=== PATIENT | female | born 1950 | race Caucasian/White ===

== ENCOUNTER → 2019-05-19 14:14 | Outpatient (CLI) | payer MEDICARE, OTHER, SELFPAY | PROVIDERS: PCP Student in an Organized Health Care Education/Training Program; Visit Provider Student in an Organized Health Care Education/Training Program | DX: M85.852 Other specified disorders of bone density and structure, left thigh (principal); Z78.0 Asymptomatic menopausal state; E11.9 Type 2 diabetes mellitus without complications; Z87.891 Personal history of nicotine dependence | CPT/HCPCS: 77080 ==

== ENCOUNTER → 2019-12-19 08:23 | Outpatient (CLI) | payer MEDICARE, OTHER, SELFPAY ==
[2019-12-19 09:28] LABS: Add Manual Diff / Slide Review NO; Basophils Absolute Auto 100 /uL (0-100); Basophils Percent Auto 0.8 % (0-2); Eosinophils Absolute Auto 300 /uL (0-450); Eosinophils Percent Auto 4.4 % (2-4); Hematocrit 39.9 % (36-46); Hemoglobin 13.6 g/dL (12.0-16.0); Lymphocytes Absolute Auto 3400 /uL (1100-4500); Lymphocytes Percent Auto 45.5 % (25-40); Mean Corpuscular Hemoglobin 29.9 PG (26-34); Monocytes Absolute Auto 600 /uL (0-900); Monocytes Percent Auto 7.6 % (3-14); Neutrophils Absolute Auto 3200 /uL (1500-7000); Neutrophils Percent Auto 41.7 % (50-75); Platelet Count 286 X10^3/uL (150-400); Red Blood Cell Count 4.53 X10^6/uL (4.0-5.2); Red Cell Distribution Width 12.7 % (11.6-14.8); White Blood Cell Count 7.6 X10^3/uL (4.5-11.0)
[2019-12-19 10:33] LABS: Creatinine Urine Random 120.4 mg/dL
[2019-12-19 10:37] LABS: Microalbumi Creatinin Ratio Ur 12.4 ug/mg CR (<30); Microalbumin Urine Random 1.5 mg/dL (0-1.6)
[2019-12-19 11:34] LABS: Hemoglobin A1C% w Est Avg Glu 8.1 % (4.0-6.0)
[2019-12-19 12:31] LABS: Alanine Aminotransferase 46 IU/L (<35); Albumin 4.8 g/dL (3.5-5.0); Albumin Globulin Ratio 1.5 (1.0-2.8); Alkaline Phosphatase 44 U/L (38-126); Aspartate Aminotransferase 39 IU/L (14-36); BUN Creatinine Ratio 26.7 (6-22); Bilirubin Total 0.4 mg/dL (0.2-1.3); Blood Urea Nitrogen 20 mg/dL (7-17); Carbon Dioxide 24 mmol/L (22-32); Chloride 101 mmol/L (98-107); Cholesterol 254 mg/dL (140-199); Estimated Glomerular Filt Rate > 60.0 mL/min (>60); Globulin 3.2 g/dL (1.7-4.1); Glucose 212 mg/dL (80-110); HDL Cholesterol 34 mg/dL (40-60); HEMOLYSIS < 15 (0-50); LDL Cholesterol Calculated 170 mg/dL (<100); Sodium 136 mmol/L (137-145); Triglycerides 252 mg/dL (35-150)
[2019-12-20 08:37] LABS: SARS CoV19 IgG Negative (Negative)
== END ==
PROVIDERS: PCP Student in an Organized Health Care Education/Training Program; Referring Provider Student in an Organized Health Care Education/Training Program; Visit Provider Student in an Organized Health Care Education/Training Program
DX: E11.9 Type 2 diabetes mellitus without complications (principal); I10 Essential (primary) hypertension
CPT/HCPCS: 36415; 80053; 80061; 82043; 82570; 83036; 85025; 86769

== ENCOUNTER → 2023-12-22 09:03 | Outpatient (CLI) | payer MEDICARE, OTHER, SELFPAY ==
[2023-12-22 10:21] LABS: Add Manual Diff / Slide Review NO; Basophils Absolute Auto 100 /uL (0-100); Basophils Percent Auto 0.7 % (0-2); Eosinophils Absolute Auto 200 /uL (0-450); Eosinophils Percent Auto 3.3 % (2-4); Hemoglobin 12.8 g/dL (12.0-16.0); Lymphocytes Absolute Auto 3100 /uL (1100-4500); Mean Corpuscular HGB Conc 33.7 % (30-36); Mean Corpuscular Hemoglobin 29.5 PG (26-34); Mean Corpuscular Volume 87.3 fL (80-100); Monocytes Absolute Auto 500 /uL (0-900); Monocytes Percent Auto 6.6 % (3-14); Neutrophils Absolute Auto 3500 /uL (1500-7000); Neutrophils Percent Auto 47.4 % (50-75); Platelet Count 306 X10^3/uL (150-400); Red Blood Cell Count 4.35 X10^6/uL (4.0-5.2); Red Cell Distribution Width 12.8 % (11.6-14.8); White Blood Cell Count 7.3 X10^3/uL (4.5-11.0)
[2023-12-22 10:39] LABS: Hemoglobin A1C% w Est Avg Glu 8.2 % (4.0-6.0)
[2023-12-22 10:57] LABS: Creatinine Urine Random 39.01 mg/dL
[2023-12-22 10:58] LABS: Alanine Aminotransferase 69 IU/L (<35); Albumin 4.7 g/dL (3.5-5.0); Albumin Globulin Ratio 1.7 (1.0-2.8); Alkaline Phosphatase 51 U/L (38-126); Aspartate Aminotransferase 48 IU/L (14-36); BUN Creatinine Ratio 23.4 (6-22); Bilirubin Total 0.6 mg/dL (0.2-1.3); Blood Urea Nitrogen 26 mg/dL (7-17); Calcium 9.8 mg/dL (8.4-10.2); Carbon Dioxide 24 mmol/L (22-32); Chloride 101 mmol/L (98-107); Cholesterol 275 mg/dL (140-199); Estimated Glomerular Filt Rate 52 mL/min (>60); Globulin 2.7 g/dL (1.7-4.1); Glucose 190 mg/dL (80-110); HDL Cholesterol 42 mg/dL (40-60); HEMOLYSIS < 15 (0-50); LDL Cholesterol Calculated 163 mg/dL (<100); Potassium 5.2 mmol/L (3.4-5.1); Sodium 134 mmol/L (137-145); Total Protein 7.4 g/dL (6.3-8.2); Triglycerides 348 mg/dL (35-150)
[2023-12-22 11:05] LABS: Microalbumin Urine Random < 0.6 mg/dL (0-1.6)
== END ==
PROVIDERS: PCP Student in an Organized Health Care Education/Training Program; Referring Provider Student in an Organized Health Care Education/Training Program; Visit Provider Student in an Organized Health Care Education/Training Program
DX: Z13.1 Encounter for screening for diabetes mellitus (principal); E11.9 Type 2 diabetes mellitus without complications
CPT/HCPCS: 36415; 80053; 80061; 82043; 82570; 83036; 85025

== ENCOUNTER → 2024-03-28 12:39 | Outpatient (CLI) | payer MEDICARE, OTHER, SELFPAY ==
--- NOTE | 2024-03-28 12:40 | DI.RAD.S_ITS ---
PROCEDURE: XR DEXA AXIAL SKELETON INDICATIONS: Bone Density Screening COMPARISON: [facility], [place], XR DEXA AXIAL SKELETON, 05/19/2019, 14:43. FINDINGS: Lumbar Spine: Bone mineral density 0.97 g/cm2, T score -0.7, previously -0.3. Left Hip: Bone mineral density 0.84 g/cm2, T score -0.8, previously -0.8. Left Femoral Neck: Bone mineral density 0.7 g/cm2, T score -1.4. Previously -1.3 Right Hip: Bone mineral density 0.84 g/cm2, T score -0.8, previously -0.5. Right Femoral Neck: Bone mineral density 0.82 g/cm2, T score -0.3 Previously 0 Fracture Risk Calculation (when applicable): 10-year fracture risk of a major osteoporotic fracture 10% and of a hip fracture 1.7%. (T score greater or equal to -1.0 to: NORMAL) (T score from -1.1 to -2.4: OSTEOPENIA) (T score less than or equal to -2.5: OSTEOPOROSIS) IMPRESSION: Osteopenia with fracture risks as above. Follow-up guidelines as follows: Osteoporosis: Consider a repeat DEXA and Vertebral Fracture Assessment (VFA) exam in 2 years or sooner if medically necessary, to reassess this patient's status. Osteopenia: Consider a repeat DEXA in 2-3 years to reassess this patient's status, or if there is a new clinical indication. Normal: Consider a repeat DEXA in 5 years or sooner, or if there is a new clinical indication. All treatment decisions require clinical judgment and consideration of individual patient factors, including patient preferences, comorbidities, previous drug use, risk factors not captured in the FRAX model (e.g., frailty, falls, vitamin D deficiency, increased bone turnover, interval significant decline in bone density ) and possible under- or over-estimation of fracture risk by FRAX. In addition, the NOF Guide recommends that FDA-approved medical therapies be considered in postmenopausal women and men age >= 50 years with a: * Hip or vertebral (clinical or morphometric) fracture * T-score of <=-2.5 at the spine or hip * Ten-year fracture probability by FRAX of >= 3% for hip fracture or >=20% for major osteoporotic fracture. People with diagnosed cases of osteoporosis or at high risk for fracture should have regular bone mineral density tests. For patients eligible for Medicare, routine testing is allowed once every 2 years. The testing frequency can be increased to one year for patients who have rapidly progressing disease, those who are receiving or discontinuing medical therapy to restore bone mass, or have additional risk factors. Dictated by: Dorian Gauthier M.D. on 03/29/2024 at 11:29 Approved by: Dorian Gauthier M.D. on 03/29/2024 at 11:31
== END ==
PROVIDERS: PCP Student in an Organized Health Care Education/Training Program; Referring Provider Student in an Organized Health Care Education/Training Program; Visit Provider Student in an Organized Health Care Education/Training Program
DX: M85.88 Other specified disorders of bone density and structure, other site (principal); Z91.89 Other specified personal risk factors, not elsewhere classified
CPT/HCPCS: 77080

== ENCOUNTER → 2024-04-03 09:56 | Outpatient (CLI) | payer MEDICARE, OTHER, SELFPAY ==
[2024-04-03 10:57] LABS: Hemoglobin A1C% w Est Avg Glu 7.7 % (4.0-6.0)
[2024-04-03 11:37] LABS: Alanine Aminotransferase 72 IU/L (<35); Albumin 4.7 g/dL (3.5-5.0); Albumin Globulin Ratio 1.8 (1.0-2.8); Alkaline Phosphatase 49 U/L (38-126); Aspartate Aminotransferase 49 IU/L (14-36); Bilirubin Total 0.7 mg/dL (0.2-1.3); Blood Urea Nitrogen 19 mg/dL (7-17); Calcium 9.9 mg/dL (8.4-10.2); Carbon Dioxide 21 mmol/L (22-32); Chloride 96 mmol/L (98-107); Estimated Glomerular Filt Rate 52 mL/min (>60); Globulin 2.6 g/dL (1.7-4.1); Glucose 197 mg/dL (80-110); HEMOLYSIS < 15 (0-50); Potassium 5.1 mmol/L (3.4-5.1); Sodium 129 mmol/L (137-145); Total Protein 7.3 g/dL (6.3-8.2)
== END ==
PROVIDERS: PCP Student in an Organized Health Care Education/Training Program; Referring Provider Student in an Organized Health Care Education/Training Program; Visit Provider Student in an Organized Health Care Education/Training Program
DX: I12.9 Hypertensive chronic kidney disease with stage 1 through stage 4 chronic kidney disease, or unspecified chronic kidney disease (principal); E11.22 Type 2 diabetes mellitus with diabetic chronic kidney disease; N18.31 Chronic kidney disease, stage 3a
CPT/HCPCS: 36415; 80053; 83036

== ENCOUNTER → 2024-08-02 10:33 | Outpatient (CLI) | payer MEDICARE, OTHER, SELFPAY ==
[2024-08-02 11:16] LABS: Add Manual Diff / Slide Review NO; Basophils Absolute Auto 100 /uL (0-100); Basophils Percent Auto 0.8 % (0-2); Eosinophils Absolute Auto 300 /uL (0-450); Eosinophils Percent Auto 3.8 % (2-4); Hematocrit 38.7 % (36-46); Lymphocytes Absolute Auto 3400 /uL (1100-4500); Lymphocytes Percent Auto 41.4 % (25-40); Mean Corpuscular HGB Conc 33.7 % (30-36); Mean Corpuscular Hemoglobin 29.5 PG (26-34); Mean Corpuscular Volume 87.5 fL (80-100); Monocytes Absolute Auto 500 /uL (0-900); Monocytes Percent Auto 6.2 % (3-14); Neutrophils Absolute Auto 3900 /uL (1500-7000); Neutrophils Percent Auto 47.8 % (50-75); Platelet Count 306 X10^3/uL (150-400); Red Blood Cell Count 4.42 X10^6/uL (4.0-5.2); Red Cell Distribution Width 12.8 % (11.6-14.8); White Blood Cell Count 8.2 X10^3/uL (4.5-11.0)
[2024-08-02 11:27] LABS: Hemoglobin A1C% w Est Avg Glu 9.3 % (4.0-6.0)
[2024-08-02 11:57] LABS: Alanine Aminotransferase 79 IU/L (<35); Albumin 4.6 g/dL (3.5-5.0); Albumin Globulin Ratio 1.6 (1.0-2.8); Alkaline Phosphatase 45 U/L (38-126); Aspartate Aminotransferase 58 IU/L (14-36); BUN Creatinine Ratio 18.3 (6-22); Bilirubin Total 0.5 mg/dL (0.2-1.3); Blood Urea Nitrogen 21 mg/dL (7-17); Carbon Dioxide 24 mmol/L (22-32); Chloride 98 mmol/L (98-107); Estimated Glomerular Filt Rate 50 mL/min (>60); Globulin 2.8 g/dL (1.7-4.1); Glucose 224 mg/dL (80-110); HEMOLYSIS < 15 (0-50); Iron 90 ug/dL (37-170); Sodium 131 mmol/L (137-145); Total Protein 7.4 g/dL (6.3-8.2)
[2024-08-02 12:10] LABS: Percent Iron Saturation 30 % (15-50); Total Iron Binding Capacity 300 ug/dL (265-497); Transferrin 284 mg/dL (206-381)
[2024-08-02 12:33] LABS: Ferritin 76 ng/mL (11-264)
== END ==
LOC: LAB 10:36
PROVIDERS: PCP Student in an Organized Health Care Education/Training Program; Referring Provider Student in an Organized Health Care Education/Training Program; Visit Provider Student in an Organized Health Care Education/Training Program
DX: D64.9 Anemia, unspecified (principal); E11.9 Type 2 diabetes mellitus without complications; R74.8 Abnormal levels of other serum enzymes
CPT/HCPCS: 36415; 80053; 82728; 83036; 83540; 83550; 85025

== ENCOUNTER → 2024-11-27 08:11 | Outpatient (CLI) | payer MEDICARE, OTHER, SELFPAY ==
--- NOTE | 2024-11-27 08:12 | DI.US.S_ITS ---
PROCEDURE: US ABDOMEN LIMITED INDICATIONS: Liver US for Elevated LFT's TECHNIQUE: Real-time scanning was performed of the abdominal and retroperitoneal organs, with image documentation. COMPARISON: None. FINDINGS: Liver: The liver is diffusely decreased in attenuation without focal mass lesion. Gallbladder: Sonolucent without cholelithiasis. No gallbladder wall thickening. No pericholecystic fluid or Addison's sign. Common Bile Duct: 6.0 mm. Pancreas: Unremarkable as visualized IMPRESSION: Hepatic fatty infiltration without mass lesion Approved by: Kishore Abbott M.D. on 11/27/2024 at 18:41
== END ==
LOC: US 08:12
PROVIDERS: PCP Student in an Organized Health Care Education/Training Program; Referring Provider Student in an Organized Health Care Education/Training Program; Visit Provider Student in an Organized Health Care Education/Training Program
DX: K76.0 Fatty (change of) liver, not elsewhere classified (principal); R74.8 Abnormal levels of other serum enzymes
CPT/HCPCS: 76705

== ENCOUNTER → 2024-12-04 08:47 | Outpatient (CLI) | payer MEDICARE, OTHER, SELFPAY ==
[2024-12-04 10:35] LABS: Alanine Aminotransferase 41 IU/L (<35); Albumin 4.8 g/dL (3.5-5.0); Albumin Globulin Ratio 1.8 (1.0-2.8); Alkaline Phosphatase 47 U/L (38-126); Aspartate Aminotransferase 32 IU/L (14-36); BUN Creatinine Ratio 28.9 (6-22); Bilirubin Total 0.5 mg/dL (0.2-1.3); Blood Urea Nitrogen 37 mg/dL (7-17); Calcium 9.9 mg/dL (8.4-10.2); Carbon Dioxide 20 mmol/L (22-32); Chloride 98 mmol/L (98-107); Cholesterol 286 mg/dL (140-199); Estimated Glomerular Filt Rate 44 mL/min (>60); Globulin 2.7 g/dL (1.7-4.1); Glucose 184 mg/dL (70-99); HDL Cholesterol 37 mg/dL (40-60); HEMOLYSIS < 15 (0-50); LDL Cholesterol Calculated 193 mg/dL (<100); Sodium 130 mmol/L (137-145); Total Protein 7.5 g/dL (6.3-8.2); Triglycerides 280 mg/dL (35-150)
[2024-12-04 10:36] LABS: Potassium 5.8 mmol/L (3.4-5.1)
[2024-12-04 11:08] LABS: TSH w/ Reflex to FT4 4.95 uIU/mL (0.47-4.68)
[2024-12-04 12:01] LABS: Free T4, Direct Thyroxine 1.09 ng/dL (0.78-2.19)
== END ==
PROVIDERS: PCP Student in an Organized Health Care Education/Training Program; Referring Provider Student in an Organized Health Care Education/Training Program; Visit Provider Student in an Organized Health Care Education/Training Program
DX: I12.9 Hypertensive chronic kidney disease with stage 1 through stage 4 chronic kidney disease, or unspecified chronic kidney disease (principal); N18.31 Chronic kidney disease, stage 3a; R74.8 Abnormal levels of other serum enzymes; E11.22 Type 2 diabetes mellitus with diabetic chronic kidney disease; Z79.899 Other long term (current) drug therapy
CPT/HCPCS: 36415; 80053; 80061; 83036; 84439; 84443

== ENCOUNTER 2024-12-04 18:41 | Emergency (ER) | payer MEDICARE, OTHER, SELFPAY ==
[2024-12-04] VITALS (8 sets, daily range): BP systolic 105–154; BP diastolic 55–70; PULSE 92–100; RESP 18–28; TEMP 36.6; O2SAT 95–98
--- NOTE | 2024-12-04 18:55 | EKG_ITS ---
[address] [address] [address] [address] Test Date: 2024-12-04 Pat Name: Ginna Rivers Department: Room: Gender: Female [employer]: ALEXANDR : 1950 Requested By: Order Number: [id number] Reading MD: Inocente Stewart MD Measurements Intervals [place] Rate: 96 P: 37 IN: 142 QRS: -12 QRSD: 68 T: 14 QT: 322 QTc: 406 Interpretive Statements Normal sinus rhythm Low voltage QRS Inferior infarct , age undetermined Electronically Signed On 12-05-2024 7:43:17 PDT by Inocente Stewart MD
[2024-12-04 19:44] LABS: Add Manual Diff / Slide Review NO; Basophils Absolute Auto 100 /uL (0-100); Eosinophils Absolute Auto 200 /uL (0-450); Eosinophils Percent Auto 2.2 % (2-4); Hematocrit 36.6 % (36-46); Hemoglobin 12.8 g/dL (12.0-16.0); Lymphocytes Absolute Auto 3900 /uL (1100-4500); Lymphocytes Percent Auto 38.9 % (25-40); Mean Corpuscular HGB Conc 34.8 % (30-36); Mean Corpuscular Hemoglobin 30.5 PG (26-34); Mean Corpuscular Volume 87.5 fL (80-100); Monocytes Absolute Auto 800 /uL (0-900); Monocytes Percent Auto 7.8 % (3-14); Neutrophils Absolute Auto 5000 /uL (1500-7000); Neutrophils Percent Auto 50.1 % (50-75); Platelet Count 278 X10^3/uL (150-400); Red Blood Cell Count 4.18 X10^6/uL (4.0-5.2); Red Cell Distribution Width 12.9 % (11.6-14.8); White Blood Cell Count 9.9 X10^3/uL (4.5-11.0)
[2024-12-04 19:53] LABS: INR 0.9 (0.9-1.3); Prothrombin Time 10.7 SECONDS (9.4-12.5)
[2024-12-04 19:54] LABS: Lactate (Lactic Acid) 2.6 mmol/L (0.7-2.1)
[2024-12-04 19:56] LABS: Alanine Aminotransferase 42 IU/L (<35); Albumin 4.8 g/dL (3.5-5.0); Albumin Globulin Ratio 1.7 (1.0-2.8); Alkaline Phosphatase 42 U/L (38-126); Aspartate Aminotransferase 33 IU/L (14-36); BUN Creatinine Ratio 26.3 (6-22); Bilirubin Total 0.4 mg/dL (0.2-1.3); Blood Urea Nitrogen 41 mg/dL (7-17); Carbon Dioxide 20 mmol/L (22-32); Chloride 100 mmol/L (98-107); Creatine Kinase 32 U/L (30-135); Estimated Glomerular Filt Rate 35 mL/min (>60); Globulin 2.9 g/dL (1.7-4.1); Glucose 172 mg/dL (70-99); HEMOLYSIS 25 (0-50); Lipase 279 U/L (23-300); Magnesium 1.6 mg/dL (1.6-2.3); PTT Partial Thromboplastin Tim 27 SECONDS (25.1-36.5); Sodium 131 mmol/L (137-145); Total Protein 7.7 g/dL (6.3-8.2)
[2024-12-04 19:57] LABS: Potassium 5.6 mmol/L (3.4-5.1)
[2024-12-04 20:07] LABS: NT-proBNP (BNP-Adult 18+) 34 pg/mL (<125); Troponin I < 0.012 ng/mL (0.01-0.034)
--- NOTE | 2024-12-04 20:20 | ED.RECABL ---
HPI - Recheck/Abnormal Lab/Rx General Chief Complaint: Recheck/Abnormal Lab/Rx Stated Complaint: High potassium, Doctor said to come to ER Time Seen by Provider: 12/04/24 20:12 Source: patient Mode of arrival: Ambulatory History of Present Illness HPI narrative: 74-year-old female with history of diabetes, chronic kidney disease, was called to have further evaluation treatment of elevated potassium level from outpatient blood draw. Patient had routine outpatient blood draw, was told her potassium was 5.8 into high, was told to come in here for further evaluation, possible treatment if confirmed to be high. She has not have any current symptoms. She did have watery stools nonbloody and some vomiting last week, it seemed to get better. She can not remember having any specific potassium supplementation at thereafter. No other changes in medications. She tells he serum metformin doses for her diabetes. Related Data Home Medications Medication Instructions Recorded Confirmed aspirin 81 mg tablet,delayed 81 mg PO DAILY 09/10/23 12/05/24 release (Adult Low Dose Aspirin) pstorla-qgckxmwunupyv-jezrbfbe 250 1 tab PO Q4-6H PRN Pain 09/10/23 12/05/24 mg-250 mg-65 mg tablet (Excedrin Extra Strength) cholecalciferol (vitamin D3) 1,250 1,250 mcg PO QMONTH 09/10/23 12/05/24 mcg (50,000 unit) capsule cyanocobalamin (vitamin B-12) 500 250 mcg PO DAILY 09/10/23 12/05/24 mcg tablet (B-12 DOTS) lutein 20 mg tablet 20 mg PO DAILY 09/10/23 12/05/24 multivitamin 1 tab PO DAILY 09/10/23 12/05/24 calcium 315 mg (as 1 tab PO osteopenia 08/07/24 08/07/24 citrate)-vitamin D3 5 mcg (200 unit) tablet (Calcium Citrate + D) Previous Rx's Medication Instructions Recorded metformin 1,000 mg tablet 1,000 mg PO BID #120 tabs 12/28/23 lisinopril 10 1 tab PO DAILY #90 tabs 08/30/24 mg-hydrochlorothiazide 12.5 mg tablet blood sugar diagnostic (True #100 ea 09/14/24 Metrix Glucose Test Strip) diazepam 5 mg tablet 5 mg PO BID PRN anxiety #20 tabs 10/05/24 Allergies Allergy/AdvReac Type Severity Reaction Status Date / Time NSAIDS (Non-Steroidal Allergy Severe Anxiety Verified 12/04/24 19:04 Anti-Inflamma shellfish derived Allergy Severe Abdominal Verified 12/04/24 19:04 Pain Dfefdty-NVK-GvB Reductase Allergy Severe Anxiety Verified 12/04/24 19:04 Inhibitor amoxicillin Allergy Intermediate Rash Verified 12/05/24 05:16 progesterone Allergy Intermediate Verified 12/04/24 19:04 food Allergy Severe Abdominal Uncoded 12/05/24 05:16 Pain titanium oxide Allergy Severe Rash Uncoded 12/04/24 19:04 Exam Narrative Exam Narrative: GENERAL: Well-developed patient, in mild distress. HEAD: Atraumatic. Normocephalic. EYES: Pupils equal round and reactive. Extraocular motions intact. No scleral icterus. No injection or drainage. ENT: Nose without bleeding, purulent drainage. Throat without erythema, tonsillar hypertrophy or exudate. Airway patent. NECK: Trachea midline. Non tender CARDIOVASCULAR: Regular rate and rhythm without murmurs, gallops, or rubs. RESPIRATORY: Clear to auscultation. Breath sounds equal bilaterally. No wheezes, rales, or rhonchi. GASTROINTESTINAL: Abdomen soft, non-tender, nondistended. EXTREMITIES: No edema or joint tenderness. BACK: Nontender without deformity or crepitance. No flank tenderness. NEURO: AOx3. Motor functions grossly nonfocal SKIN: No rash or erythema of visible areas Initial Vital Signs Initial Vital Signs: Vital Signs Temperature 98 F 12/04/24 19:02 Pulse Rate 97 H 12/04/24 19:02 Respiratory Rate 18 12/04/24 19:02 Blood Pressure 154/70 H 12/04/24 19:02 Pulse Oximetry 98 12/04/24 19:02 Oxygen Delivery Method Room Air 12/04/24 19:02 Course Orders Ordered: ED Orders 12/04/24 22:47 BMP [Basic Metabolic Panel] Stat 12/05/24 02:35 Potassium Stat 12/05/24 06:12 Potassium Stat Discontinued Medications Albuterol (Albuterol 2.5 Mg/3 Ml Neb (Adult)) 2.5 mg INH NOW ONE Stop: 12/05/24 03:04 Last Admin: 12/05/24 03:19 Dose: 2.5 mg Documented By: Roshni Dextrose (Dextrose 50 % In Water 25 Gm/50 Ml Syringe) 25 gm IV NOW ONE Stop: 12/04/24 20:13 Last Admin: 12/04/24 21:06 Dose: Not Given Documented By: KEVIN Dextrose (Dextrose 50 % In Water 25 Gm/50 Ml Syringe) 25 gm IV NOW ONE Stop: 12/04/24 23:21 Last Admin: 12/04/24 23:38 Dose: 25 gm Documented By: HERVE Dextrose (Dextrose 50 % In Water 25 Gm/50 Ml Syringe) 25 gm IV PRN PRN PRN Reason: Hypoglycemia Furosemide (Furosemide 40 Mg/4 Ml Vial) 40 mg IV NOW ONE Stop: 12/04/24 20:13 Last Admin: 12/04/24 21:06 Dose: Not Given Documented By: KEVIN Furosemide (Furosemide 40 Mg/4 Ml Vial) 40 mg IV NOW ONE Stop: 12/04/24 23:21 Last Admin: 12/04/24 23:37 Dose: 40 mg Documented By: HERVE Furosemide (Furosemide 40 Mg/4 Ml Vial) 40 mg IV NOW ONE Stop: 12/05/24 03:04 Last Admin: 12/05/24 03:21 Dose: 40 mg Documented By: HERVE Calcium Gluconate 4.65 meq/ (Sodium Chloride) 60 mls @ 180 mls/hr IV NOW ONE Stop: 12/04/24 20:31 Last Admin: 12/04/24 21:06 Dose: Not Given Documented By: KEVIN Sodium Chloride (Normal Saline 0.9%) 1,000 mls @ 1,000 mls/hr IV BOLUS ONE Stop: 12/04/24 21:13 Last Infusion: 12/04/24 21:27 Dose: Infused Documented By: Admin: 12/04/24 20:38 Dose: 1,000 mls/hr Documented By: KEVIN Calcium Gluconate 4.65 meq/ (Sodium Chloride) 60 mls @ 180 mls/hr IV NOW ONE Stop: 12/04/24 23:41 Last Infusion: 12/05/24 00:00 Dose: Infused Documented By: Admin: 12/04/24 23:39 Dose: 180 mls/hr Documented By: HERVE Sodium Chloride (Normal Saline 0.9%) 1,000 mls @ 1,000 mls/hr IV BOLUS ONE Stop: 12/05/24 04:02 Last Infusion: 12/05/24 05:23 Dose: Infused Documented By: Admin: 12/05/24 03:23 Dose: 1,000 mls/hr Documented By: HERVE Sodium Bicarbonate 100 meq/ (Sterile Water) 500 mls @ 200 mls/hr IV CONT ANIYAH Last Admin: 12/05/24 04:28 Dose: Not Given Documented By: Insulin Human Regular (Insulin Regular 100 Unit/Ml 3 Ml Vial) 5 unit IV NOW ONE Stop: 12/04/24 20:13 Last Admin: 12/04/24 21:06 Dose: Not Given Documented By: KEVIN Insulin Human Regular (Insulin Regular 100 Unit/Ml 3 Ml Vial) 5 unit IV NOW ONE Stop: 12/04/24 23:21 Last Admin: 12/05/24 00:02 Dose: 5 unit Documented By: HERVE Co-signed By: AT Insulin Human Regular (Insulin Regular 100 Unit/Ml 3 Ml Vial) 5 unit IV NOW ONE Stop: 12/05/24 03:04 Last Admin: 12/05/24 03:43 Dose: 5 unit Documented By: HERVE Co-signed By: Sodium Bicarbonate (Sodium Bicarb 8.4% Syringe) 50 meq IV NOW ONE Stop: 12/05/24 04:29 Last Admin: 12/05/24 04:34 Dose: 50 meq Documented By: HERVE Sodium Zirconium Cyclosilicate (Sodium Zirconium Cyclosilicate 10 Gm Powd.Pack) 10 gm PO NOW ONE Stop: 12/04/24 20:13 Last Admin: 12/04/24 20:44 Dose: 10 gm Documented By: KEVIN Sodium Zirconium Cyclosilicate (Sodium Zirconium Cyclosilicate 10 Gm Powd.Pack) 10 gm PO NOW ONE Stop: 12/04/24 23:21 Last Admin: 12/04/24 23:40 Dose: Not Given Documented By: HERVE Sodium Zirconium Cyclosilicate (Sodium Zirconium Cyclosilicate 10 Gm Powd.Pack) 10 gm PO NOW ONE Stop: 12/05/24 03:04 Last Admin: 12/05/24 03:05 Dose: 10 gm Documented By: HERVE Vital Signs Vital signs: Vital Signs - 8 hr 12/04/24 23:00 12/04/24 23:00 12/04/24 23:30 Pulse Rate 92 H 93 H Respiratory Rate 20 28 H Blood Pressure 105/55 L Pulse Oximetry 96 97 Oxygen Delivery Method 12/04/24 23:31 12/04/24 23:31 12/05/24 00:00 Pulse Rate 94 H 101 H Respiratory Rate 27 H 30 H Blood Pressure 125/58 L Pulse Oximetry 97 97 Oxygen Delivery Method 12/05/24 00:00 12/05/24 00:20 12/05/24 00:20 Pulse Rate 100 H Respiratory Rate 27 H Blood Pressure 155/77 H 145/72 H Pulse Oximetry 96 Oxygen Delivery Method 12/05/24 00:30 12/05/24 00:30 12/05/24 01:00 Pulse Rate 98 H 100 H Respiratory Rate 26 H 20 Blood Pressure 152/62 H Pulse Oximetry 97 96 Oxygen Delivery Method 12/05/24 01:00 12/05/24 01:30 12/05/24 02:00 Pulse Rate 90 86 Respiratory Rate 19 20 Blood Pressure 125/60 Pulse Oximetry 99 98 Oxygen Delivery Method Room Air 12/05/24 02:18 12/05/24 02:18 12/05/24 02:30 Pulse Rate 86 96 H Respiratory Rate 18 13 Blood Pressure 109/59 L Pulse Oximetry 98 98 Oxygen Delivery Method 12/05/24 02:30 12/05/24 03:00 12/05/24 03:00 Pulse Rate 85 Respiratory Rate 24 Blood Pressure 170/73 H 131/66 Pulse Oximetry 98 Oxygen Delivery Method 12/05/24 03:24 12/05/24 03:30 12/05/24 03:30 Pulse Rate 86 90 Respiratory Rate 16 25 H Blood Pressure 144/69 H Pulse Oximetry 96 95 Oxygen Delivery Method Room Air 12/05/24 04:00 12/05/24 04:30 12/05/24 05:00 Pulse Rate 100 H 98 H 94 H Respiratory Rate 25 H 23 15 Blood Pressure Pulse Oximetry 97 96 95 Oxygen Delivery Method 12/05/24 05:31 12/05/24 06:00 12/05/24 06:03 Pulse Rate 103 H 98 H 93 H Respiratory Rate 24 25 H 20 Blood Pressure Pulse Oximetry 96 97 96 Oxygen Delivery Method 12/05/24 06:03 12/05/24 06:30 12/05/24 06:30 Pulse Rate 94 H Respiratory Rate 20 Blood Pressure 119/57 L 103/57 L Pulse Oximetry 95 Oxygen Delivery Method MDM - Recheck/Abnormal Lab/Rx Lab Data Attestation: I reviewed the patient's lab results. Lab results narrative: White blood cell count 9900, hemoglobin 12.8, platelets adequate. Glucose 172. BUN 41 with creatinine 1.56. Serum CO2 20. Potassium today here in the emergency department 5.6, compared to earlier today as an outpatient 5.8. Sodium 131. Slight elevated ALT, otherwise normal liver functions. Lipase normal. BNP normal. Troponin negative. 12/04/24 19:36 12/05/24 06:12 Labs: Lab Results 12/04/24 12/04/24 12/04/24 Range/Units 19:36 21:48 22:47 WBC 9.9 (4.5-11.0) X10^3/uL RBC 4.18 (4.0-5.2) X10^6/uL Hgb 12.8 (12.0-16.0) g/dL Hct 36.6 (36-46) % MCV 87.5 (80-100) fL MCH 30.5 (26-34) PG MCHC 34.8 (30-36) % RDW 12.9 (11.6-14.8) % Plt Count 278 (150-400) X10^3/uL Neut % (Auto) 50.1 (50-75) % Lymph % (Auto) 38.9 (25-40) % [place] % (Auto) 7.8 (3-14) % Eos % (Auto) 2.2 (2-4) % Baso % (Auto) 1.0 (0-2) % Neut # (Auto) 5000 (0798-6371) /uL Lymph # (Auto) 3900 (6967-6453) /uL [place] # (Auto) 800 (0-900) /uL Eos # (Auto) 200 (0-450) /uL Baso # (Auto) 100 (0-100) /uL PT 10.7 (9.4-12.5) SECONDS INR 0.9 (0.9-1.3) APTT 27 (25.1-36.5) SECONDS Sodium 131 L 131 L (137-145) mmol/L Potassium 5.6 H 5.5 H (3.4-5.1) mmol/L Chloride 100 104 (98-107) mmol/L Carbon Dioxide 20 L 17 L (22-32) mmol/L BUN 41 H 37 H (7-17) mg/dL Creatinine 1.56 H 1.29 H (0.52-1.04) mg/dL Estimated GFR 35 L 44 L (>60) mL/min BUN/Creatinine Ratio 26.3 H 28.7 H (6-22) Glucose 172 H 153 H (70-99) mg/dL Lactate 2.6 H 2.4 H (0.7-2.1) mmol/L Calcium 10.0 9.2 (8.4-10.2) mg/dL Magnesium 1.6 (1.6-2.3) mg/dL Total Bilirubin 0.4 (0.2-1.3) mg/dL AST 33 (14-36) IU/L ALT 42 H (<35) IU/L Alkaline Phosphatase 42 (38-126) U/L Total Creatine Kinase 32 (30-135) U/L Troponin I < 0.012 (0.01-0.034) ng/mL NT-Pro-B Natriuret Pep 34 (<125) pg/mL Total Protein 7.7 (6.3-8.2) g/dL Albumin 4.8 (3.5-5.0) g/dL Globulin 2.9 (1.7-4.1) g/dL Albumin/Globulin Ratio 1.7 (1.0-2.8) Lipase 279 (23-300) U/L 12/05/24 12/05/24 Range/Units 02:35 06:12 WBC (4.5-11.0) X10^3/uL RBC (4.0-5.2) X10^6/uL Hgb (12.0-16.0) g/dL Hct (36-46) % MCV (80-100) fL MCH (26-34) PG MCHC (30-36) % RDW (11.6-14.8) % Plt Count (150-400) X10^3/uL Neut % (Auto) (50-75) % Lymph % (Auto) (25-40) % [place] % (Auto) (3-14) % Eos % (Auto) (2-4) % Baso % (Auto) (0-2) % Neut # (Auto) (3263-7339) /uL Lymph # (Auto) (7196-4832) /uL [place] # (Auto) (0-900) /uL Eos # (Auto) (0-450) /uL Baso # (Auto) (0-100) /uL PT (9.4-12.5) SECONDS INR (0.9-1.3) APTT (25.1-36.5) SECONDS Sodium (137-145) mmol/L Potassium 5.5 H 4.1 D (3.4-5.1) mmol/L Chloride (98-107) mmol/L Carbon Dioxide (22-32) mmol/L BUN (7-17) mg/dL Creatinine (0.52-1.04) mg/dL Estimated GFR (>60) mL/min BUN/Creatinine Ratio (6-22) Glucose (70-99) mg/dL Lactate (0.7-2.1) mmol/L Calcium (8.4-10.2) mg/dL Magnesium (1.6-2.3) mg/dL Total Bilirubin (0.2-1.3) mg/dL AST (14-36) IU/L ALT (<35) IU/L Alkaline Phosphatase (38-126) U/L Total Creatine Kinase (30-135) U/L Troponin I (0.01-0.034) ng/mL NT-Pro-B Natriuret Pep (<125) pg/mL Total Protein (6.3-8.2) g/dL Albumin (3.5-5.0) g/dL Globulin (1.7-4.1) g/dL Albumin/Globulin Ratio (1.0-2.8) Lipase (23-300) U/L Point of Care Testing Glucose POC 223 ECG Data Attestation: I personally reviewed and interpreted this ECG as follows: Interpretation: Normal sinus rhythm with rate of 96, no obvious ST segment elevation or depression changes. AR 142, QRS 68, QTC 406. MDM Narrative Medical decision making narrative: 74-year-old female with diabetes and hypertension, had outpatient lab draw showing potassium 5.8 and was told to come in for evaluation and possible treatment, repeat labs here pending. BUN creatinine elevated mildly, potassium 5.6 elevated but less than previous draw. Patient lactate elevated, consider dehydration, could be metformin effect, she took her metformin regularly and including this evening. Glucose level controlled. We will give IV fluid bolus, we will give oral Lokelma. She declines other potassium lowering therapies. Repeat BNP 3 hours requested. Repeat potassium 5.5 slight change only, patient now willing to have the other treatments already ordered that were canceled. IV dextrose/insulin, IV Lasix. 0300, repeat potassium 5.5 unchanged. Offered admission, declined. Patient willing to have more Rx in the emergency department. We will give saline bolus, IV Lasix, dextrose/insulin, repeat oral dose of Lokelma, we will give IV bicarbonate bolus, and nebulized albuterol. Repeat potassium level 0600. 0600, repeat potassium 4.1 improved. Consider stopping lisinopril/hydrochlorothiazide, if the lisinopril might be contributing to the hyperkalemia. Might need hydrochlorothiazide prescription separately. Recheck potassium labs in the next couple of days with your regular doctor. Improved, stable, home with family. Return precautions discussed. Discharge Plan Departure Patient Disposition: Home Clinical Impression: Hyperkalemia Activity Restrictions/Additional Instructions: Mild hyperkalemia elevated serum potassium level. Routine blood draw outpatient earlier today showed potassium level 5.8 mild elevation, on repeat testing here was 5.6, slight elevation. We discussed various treatments, your lactate was a bit elevated, possibly due to dehydration, but you are also taking metformin which can elevate lactate. IV fluids given to address any potential dehydration, also tied dilute the potassium and help the serum potassium level. Oral Lokelma was also given to absorb potassium. Repeat blood testing reassuring. Continue your chronic regular medications for now. Consider recheck of your potassium and other labs as an outpatient with your regular doctor as planned. Return earlier to this/nearest emergency department for any change worsening symptoms or any concerns prior. Consider holding your lisinopril/hydrochlorothiazide medication, if the lisinopril is contributing to your higher potassium levels. You may need of sent for a prescription for your hydrochlorothiazide. Recheck your potassium level in the next couple of days with your regular doctor. Prescriptions: No Action calcium citrate-vitamin D3 [Calcium Citrate + D] 315 mg-5 mcg (200 unit) tablet 1 tab PO aspirin [Adult Low Dose Aspirin] 81 mg tablet,delayed release (DR/EC) 81 mg PO DAILY lutein 20 mg tablet 20 mg PO DAILY Rx Instructions: give with meal/snack cholecalciferol (vitamin D3) 1,250 mcg (50,000 unit) capsule 1,250 mcg PO QMONTH multivitamin Tablet 1 tab PO DAILY cyanocobalamin (vitamin B-12) [B-12 DOTS] 500 mcg tablet 250 mcg PO DAILY Excedrin Extra Strength 250-250-65 mg tablet 1 tab PO Q4-6H PRN (Reason: Pain) metformin 1,000 mg tablet 1,000 mg PO BID Qty: 120 4RF lisinopril-hydrochlorothiazide 10-12.5 mg tablet 1 tab PO DAILY Qty: 90 3RF (DME) True Metrix Glucose Test Strip Strip See Rx Instructions .ROUTE .COMPLEX Qty: 100 2RF Dose Instruction: USE TO TEST BLOOD GLUCOSE LEVELS THREE TO FIVE TIMES A DAY Rx Instructions: USE TO TEST BLOOD GLUCOSE LEVELS once a day, NOT insulin dependent diazepam 5 mg tablet 5 mg PO BID PRN (Reason: anxiety) Qty: 20 5RF Referrals: Marti Pace MD [Primary Care Provider] - Stand Alone Forms: Patient Portal/API/Survey
[2024-12-04] MEDS: SODIUM CHLORIDE 0.9% 1,000 ML 1000 ML IV (20:38)
[2024-12-04] MEDS: SODIUM ZIRCONIUM CYCLOSILICATE 10 GM POWD.PACK PO (20:44)
[2024-12-04 21:15] LABS: Reflexed Lactate in 2 Hours Y
[2024-12-04 22:04] LABS: Lactate 2HR (Lactic Acid Rflx) 2.4 mmol/L (0.7-2.1)
[2024-12-04 23:03] LABS: BUN Creatinine Ratio 28.7 (6-22); Blood Urea Nitrogen 37 mg/dL (7-17); Calcium 9.2 mg/dL (8.4-10.2); Carbon Dioxide 17 mmol/L (22-32); Chloride 104 mmol/L (98-107); Estimated Glomerular Filt Rate 44 mL/min (>60); Glucose 153 mg/dL (70-99); HEMOLYSIS < 15 (0-50); Sodium 131 mmol/L (137-145)
[2024-12-04 23:05] LABS: Potassium 5.5 mmol/L (3.4-5.1)
[2024-12-04] MEDS: FUROSEMIDE 40 MG/4 ML VIAL IV (23:37)
[2024-12-04] MEDS: DEXTROSE 50 % IN WATER 25 GM/50 ML SYRINGE IV (23:38)
[2024-12-04] MEDS: CALCIUM GLUCONATE 4.65 MEQ in SODIUM CHLORIDE 0.9% 50 ML 180 MEQ IV (23:39)
[2024-12-05] VITALS (18 sets, daily range): BP systolic 103–170; BP diastolic 57–77; PULSE 85–103; RESP 13–30; O2SAT 95–99
[2024-12-05] MEDS: INSULIN REGULAR 100 UNIT/ML 3 ML VIAL IV ×2 (00:02→03:43)
[2024-12-05 02:46] LABS: HEMOLYSIS < 15 (0-50)
[2024-12-05 02:48] LABS: Potassium 5.5 mmol/L (3.4-5.1)
[2024-12-05] MEDS: SODIUM ZIRCONIUM CYCLOSILICATE 10 GM POWD.PACK PO (03:05)
[2024-12-05] MEDS: ALBUTEROL 2.5 MG/3 ML NEB (ADULT) INH (03:19)
[2024-12-05] MEDS: FUROSEMIDE 40 MG/4 ML VIAL IV (03:21)
[2024-12-05] MEDS: SODIUM CHLORIDE 0.9% 1,000 ML 1000 ML IV (03:23)
[2024-12-05] MEDS: SODIUM BICARB 8.4% SYRINGE 50 MEQ IV (04:34)
[2024-12-05 06:29] LABS: HEMOLYSIS < 15 (0-50); Potassium 4.1 mmol/L (3.4-5.1)
== END 2024-12-05 06:45 | disposition home or self-care (01) ==
PROVIDERS: Emergency Medicine; Emergency Provider Emergency Medicine; PCP Student in an Organized Health Care Education/Training Program
DX: E87.5 Hyperkalemia (principal); I12.9 Hypertensive chronic kidney disease with stage 1 through stage 4 chronic kidney disease, or unspecified chronic kidney disease; E11.22 Type 2 diabetes mellitus with diabetic chronic kidney disease; N18.31 Chronic kidney disease, stage 3a; R74.8 Abnormal levels of other serum enzymes; Z79.899 Other long term (current) drug therapy
CPT/HCPCS: 36415; 80048; 80053; 80061; 82550; 82962; 83036; 83605; 83690; 83735; 83880; 84132; 84439; 84443; 84484; 85025; 85610; 85730; 93005; 93010; 94640; 99284; J0612; J1938; J7613

== ENCOUNTER → 2024-12-07 13:24 | Outpatient (CLI) | payer MEDICARE, OTHER, SELFPAY ==
[2024-12-07 14:46] LABS: BUN Creatinine Ratio 18.9 (6-22); Blood Urea Nitrogen 27 mg/dL (7-17); Calcium 9.9 mg/dL (8.4-10.2); Carbon Dioxide 22 mmol/L (22-32); Chloride 95 mmol/L (98-107); Estimated Glomerular Filt Rate 38 mL/min (>60); Glucose 237 mg/dL (70-99); HEMOLYSIS < 15 (0-50); Potassium 4.9 mmol/L (3.4-5.1); Sodium 128 mmol/L (137-145)
== END ==
PROVIDERS: PCP Student in an Organized Health Care Education/Training Program; Referring Provider Student in an Organized Health Care Education/Training Program; Visit Provider Student in an Organized Health Care Education/Training Program
DX: E87.5 Hyperkalemia (principal)
CPT/HCPCS: 36415; 80048

== ENCOUNTER → 2024-12-14 13:42 | Outpatient (CLI) | payer MEDICARE, OTHER, SELFPAY ==
[2024-12-14 14:49] LABS: Hemoglobin A1C% w Est Avg Glu 8.1 % (4.0-6.0)
[2024-12-14 15:03] LABS: BUN Creatinine Ratio 20.7 (6-22); Blood Urea Nitrogen 23 mg/dL (7-17); Calcium 10.1 mg/dL (8.4-10.2); Carbon Dioxide 20 mmol/L (22-32); Chloride 99 mmol/L (98-107); Estimated Glomerular Filt Rate 52 mL/min (>60); Glucose 180 mg/dL (70-99); HEMOLYSIS < 15 (0-50); Potassium 5.2 mmol/L (3.4-5.1); Sodium 132 mmol/L (137-145)
[2024-12-14 15:31] LABS: TSH w/ Reflex to FT4 3.62 uIU/mL (0.47-4.68)
== END ==
LOC: LAB 13:46
PROVIDERS: PCP Student in an Organized Health Care Education/Training Program; Referring Provider Student in an Organized Health Care Education/Training Program; Visit Provider Student in an Organized Health Care Education/Training Program
DX: E11.22 Type 2 diabetes mellitus with diabetic chronic kidney disease (principal); E03.9 Hypothyroidism, unspecified; E87.5 Hyperkalemia; N18.31 Chronic kidney disease, stage 3a
CPT/HCPCS: 36415; 80048; 83036; 84443

== ENCOUNTER → 2024-12-21 11:27 | Outpatient (CLI) | payer MEDICARE, OTHER, SELFPAY ==
[2024-12-21 12:06] LABS: BUN Creatinine Ratio 19.7 (6-22); Blood Urea Nitrogen 26 mg/dL (7-17); Calcium 10.1 mg/dL (8.4-10.2); Carbon Dioxide 21 mmol/L (22-32); Chloride 94 mmol/L (98-107); Estimated Glomerular Filt Rate 42 mL/min (>60); Glucose 207 mg/dL (70-99); HEMOLYSIS < 15 (0-50); Potassium 4.9 mmol/L (3.4-5.1); Sodium 131 mmol/L (137-145)
== END ==
PROVIDERS: PCP Student in an Organized Health Care Education/Training Program; Referring Provider Student in an Organized Health Care Education/Training Program; Visit Provider Student in an Organized Health Care Education/Training Program
DX: E87.5 Hyperkalemia (principal)
CPT/HCPCS: 36415; 80048

== ENCOUNTER → 2024-12-28 11:32 | Outpatient (CLI) | payer MEDICARE, OTHER, SELFPAY ==
[2024-12-28 12:05] LABS: BUN Creatinine Ratio 28.2 (6-22); Blood Urea Nitrogen 31 mg/dL (7-17); Calcium 9.7 mg/dL (8.4-10.2); Carbon Dioxide 21 mmol/L (22-32); Chloride 97 mmol/L (98-107); Estimated Glomerular Filt Rate 53 mL/min (>60); Glucose 323 mg/dL (70-99); HEMOLYSIS < 15 (0-50); Potassium 5.3 mmol/L (3.4-5.1); Sodium 130 mmol/L (137-145)
== END ==
PROVIDERS: PCP Student in an Organized Health Care Education/Training Program; Referring Provider Student in an Organized Health Care Education/Training Program; Visit Provider Student in an Organized Health Care Education/Training Program
DX: R74.8 Abnormal levels of other serum enzymes (principal); N18.9 Chronic kidney disease, unspecified
CPT/HCPCS: 36415; 80048

== ENCOUNTER → 2024-12-29 09:58 | Outpatient (CLI) | payer MEDICARE, OTHER, SELFPAY ==
[2024-12-29 10:25] LABS: Blood Urea Nitrogen 30 mg/dL (7-17); Calcium 9.5 mg/dL (8.4-10.2); Carbon Dioxide 21 mmol/L (22-32); Chloride 98 mmol/L (98-107); Estimated Glomerular Filt Rate 52 mL/min (>60); Glucose 215 mg/dL (70-99); HEMOLYSIS 15 (0-50); Potassium 4.9 mmol/L (3.4-5.1); Sodium 131 mmol/L (137-145)
== END ==
PROVIDERS: PCP Student in an Organized Health Care Education/Training Program; Referring Provider Student in an Organized Health Care Education/Training Program; Visit Provider Student in an Organized Health Care Education/Training Program
DX: E87.5 Hyperkalemia (principal)
CPT/HCPCS: 36415; 80048

== ENCOUNTER → 2025-01-04 09:03 | Outpatient (CLI) | payer MEDICARE, OTHER, SELFPAY ==
[2025-01-04 10:40] LABS: BUN Creatinine Ratio 29.1 (6-22); Blood Urea Nitrogen 32 mg/dL (7-17); Calcium 9.9 mg/dL (8.4-10.2); Carbon Dioxide 16 mmol/L (22-32); Chloride 99 mmol/L (98-107); Estimated Glomerular Filt Rate 53 mL/min (>60); Glucose 204 mg/dL (70-99); HEMOLYSIS < 15 (0-50); Sodium 129 mmol/L (137-145)
[2025-01-04 10:42] LABS: Potassium 5.5 mmol/L (3.4-5.1)
== END ==
LOC: LAB 09:06
PROVIDERS: PCP Student in an Organized Health Care Education/Training Program; Referring Provider Student in an Organized Health Care Education/Training Program; Visit Provider Student in an Organized Health Care Education/Training Program
DX: E87.5 Hyperkalemia (principal)
CPT/HCPCS: 36415; 80048

== ENCOUNTER → 2025-02-06 08:47 | Outpatient (CLI) | payer MEDICARE, OTHER, SELFPAY ==
[2025-02-06 09:45] LABS: Alanine Aminotransferase 41 IU/L (<35); Albumin 4.8 g/dL (3.5-5.0); Albumin Globulin Ratio 1.6 (1.0-2.8); Alkaline Phosphatase 47 U/L (38-126); Blood Urea Nitrogen 26 mg/dL (7-17); Calcium 10.2 mg/dL (8.4-10.2); Carbon Dioxide 22 mmol/L (22-32); Chloride 94 mmol/L (98-107); Estimated Glomerular Filt Rate 48 mL/min (>60); Globulin 3.0 g/dL (1.7-4.1); Glucose 230 mg/dL (70-99); HEMOLYSIS < 15 (0-50); Potassium 4.7 mmol/L (3.4-5.1); Sodium 129 mmol/L (137-145); Total Protein 7.8 g/dL (6.3-8.2)
[2025-02-06 09:48] LABS: Hemoglobin A1C% w Est Avg Glu 8.5 % (4.0-6.0)
[2025-02-06 10:15] LABS: TSH w/ Reflex to FT4 3.43 uIU/mL (0.47-4.68)
== END ==
PROVIDERS: PCP Student in an Organized Health Care Education/Training Program; Referring Provider Student in an Organized Health Care Education/Training Program; Visit Provider Student in an Organized Health Care Education/Training Program
DX: R74.8 Abnormal levels of other serum enzymes (principal); I12.9 Hypertensive chronic kidney disease with stage 1 through stage 4 chronic kidney disease, or unspecified chronic kidney disease; E11.22 Type 2 diabetes mellitus with diabetic chronic kidney disease; N18.31 Chronic kidney disease, stage 3a; E87.5 Hyperkalemia
CPT/HCPCS: 36415; 80053; 83036; 84443

== ENCOUNTER → 2025-04-17 10:08 | Outpatient (CLI) | payer MEDICARE, OTHER, SELFPAY ==
[2025-04-17 11:10] LABS: Hematocrit 38.6 % (36-46); Hemoglobin 13.1 g/dL (12.0-16.0)
[2025-04-17 11:36] LABS: Blood Urea Nitrogen 51 mg/dL (7-17); Calcium 9.8 mg/dL (8.4-10.2); Carbon Dioxide 16 mmol/L (22-32); Chloride 96 mmol/L (98-107); Estimated Glomerular Filt Rate 11 mL/min (>60); Glucose 179 mg/dL (70-99); HEMOLYSIS < 15 (0-50); Potassium 4.4 mmol/L (3.4-5.1); Sodium 127 mmol/L (137-145)
[2025-04-17 11:49] LABS: Protein (Total) Urine Random 59 mg/dL (0-12); Protein Creatinine Ratio Urine 0.86 GRAM/24H
[2025-04-17 20:15] LABS: Microalbumi Creatinin Ratio Ur 144.0 ug/mg CR (<30)
== END ==
PROVIDERS: Internal Medicine Nephrology; PCP Student in an Organized Health Care Education/Training Program; Referring Provider Student in an Organized Health Care Education/Training Program; Visit Provider Student in an Organized Health Care Education/Training Program
DX: N18.31 Chronic kidney disease, stage 3a (principal); I10 Essential (primary) hypertension
CPT/HCPCS: 80048; 82043; 82570; 84156; 85014; 85018

== ENCOUNTER 2025-04-17 14:08 | Inpatient (IN) | payer MEDICARE, OTHER, SELFPAY ==
[2025-04-17] VITALS (26 sets, daily range): BP systolic 116–200; BP diastolic 58–110; PULSE 83–108; RESP 16–18; TEMP 36.3; O2SAT 96–99; BMI 29.5
--- NOTE | 2025-04-17 14:17 | ED.GENADULT ---
HPI - General Adult General Chief complaint: Recheck/Abnormal Lab/Rx Stated complaint: Acute Renal Failure/Hyponutremia Time Seen by Provider: 04/17/25 14:17 History of Present Illness HPI narrative: 74-year-old female past medical history of diabetes, hypertension, CKD, comes into the ED from home for evaluation of abnormal lab work. Patient states that she had outpatient lab work performed and her creatinine was elevated, review of records so that she has a creatinine of 4.09, BUN of 51, chloride 96, hyponatremia of 126, potassium 4.4. She states that last week he felt some flu-like symptoms states that at that time she had some decreased urinary output but states that recently she has been having normal urinary output as well. She states that Dr. Walker is her washtub worker at [facility]. She states that she saw him on January and everything was normal at that time. Patient denies any other symptoms at this time. States that she would not be here if not for her abnormal lab work. She states that she is supposed to get lab work every few weeks just to monitor her kidney functions. Related Data Home Medications ?Medication ?Instructions ?Recorded ?Confirmed aspirin 81 mg tablet,delayed 81 mg PO DAILY 09/10/23 02/12/25 release (Adult Low Dose Aspirin) [id number] 250 1 tab PO Q4-6H PRN Pain 09/10/23 02/12/25 mg-250 mg-65 mg tablet (Excedrin Extra Strength) cholecalciferol (vitamin D3) 1,250 1,250 mcg PO QMONTH 09/10/23 02/12/25 mcg (50,000 unit) capsule cyanocobalamin (vitamin B-12) 500 250 mcg PO DAILY 09/10/23 02/12/25 mcg tablet (B-12 DOTS) lutein 20 mg tablet 20 mg PO DAILY 09/10/23 02/12/25 multivitamin 1 tab PO DAILY 09/10/23 02/12/25 calcium 315 mg (as 1 tab PO osteopenia 08/07/24 02/12/25 citrate)-vitamin D3 5 mcg (200 unit) tablet (Calcium Citrate + D) Previous Rx's ?Medication ?Instructions ?Recorded blood sugar diagnostic (True #100 ea 09/14/24 Metrix Glucose Test Strip) lisinopril 2.5 mg tablet 2.5 mg PO DAILY #30 tabs 12/21/24 metformin 1,000 mg tablet 1,000 mg PO BID #120 tabs 02/13/25 diazepam 5 mg tablet 5 mg PO BID PRN anxiety #20 tabs 04/09/25 hydrochlorothiazide 12.5 mg tablet 12.5 mg PO DAILY #30 tabs 04/09/25 Allergies Allergy/AdvReac Type Severity Reaction Status Date / Time NSAIDS (Non-Steroidal Allergy Severe Anxiety Verified 04/17/25 14:21 Anti-Inflamma shellfish derived Allergy Severe Abdominal Verified 04/17/25 14:21 Pain Izisqpx-[id number] Reductase Allergy Severe Anxiety Verified 04/17/25 14:21 Inhibitor amoxicillin Allergy Intermediate Rash Verified 04/17/25 14:21 progesterone Allergy Intermediate Verified 04/17/25 14:21 albuterol Allergy PVC's Verified 04/17/25 14:21 food Allergy Severe Abdominal Uncoded 04/17/25 14:21 Pain titanium oxide Allergy Severe Rash Uncoded 04/17/25 14:21 Review of Systems Review of Systems Narrative: General: Positive abnormal lab work Denies fever, chills, weight loss HEENT: Denies headache, eye drainage, eye irritation, head trauma, sore throat, voice change Cardiovascular: Denies any chest pain, palpitations, tachycardia Respiratory: Denies any shortness of breath, cough, wheeze, stridor GI/: Denies any abdominal pain, nausea, vomiting, diarrhea, bright red blood per rectum, melanotic stools, urinary frequency, urinary retention, dysuria, hematuria MSK: Denies any joint pain, muscle pains, swelling Skin: Denies any rashes, lesions, discoloration Neuro: Denies any headache, lightheadedness, dizziness, fainting, weakness Psych: Denies SI/HI Exam Narrative Exam Narrative: General: Cooperative, well-developed, not in acute distress HEENT: Normocephalic, atraumatic, PERRLA, normal sclera, eyelids normal Neck: Active full range of motion, atraumatic Chest: Normal to inspection, negative crepitus, no overlying erythema ecchymosis Respiratory: Normal respiratory effort, not in acute respiratory distress, clear to auscultation bilaterally negative cough, wheeze, tachypnea, rhonchi, rales Cardiology: Regular rate rhythm negative gallop, murmur, rubs GI/: No tenderness to palpation, soft, non rigid, normal to inspection, exam deferred MSK: Full active range of motion in all 4 extremities, atraumatic, no tenderness to palpation of any bony prominences Skin: No rashes or lesions noted Neuro: Alert awake oriented x3, moves all 4 extremities spontaneously, cranial nerves intact, able to answer all questions appropriately follows commands appropriately Psych: Cooperative, negative suicidal or homicidal ideations Initial Vital Signs Initial Vital Signs: Vital Signs Temperature 97.3 F L 04/17/25 14:10 Pulse Rate 108 H 04/17/25 14:10 Respiratory Rate 18 04/17/25 14:10 Blood Pressure 200/102 H 04/17/25 14:10 Pulse Oximetry 98 04/17/25 14:10 Oxygen Delivery Method Room Air 04/17/25 14:10 Course Orders Ordered: ED Orders 04/17/25 14:37 CT abdomen pelvis wo con Stat 04/17/25 14:50 CBC Auto Diff [Complete Blood Count AUTO DIFF] Stat CMP [Comprehensive Metabolic Panel] Stat Lipase Stat MAG [Magnesium] Stat Sodium Chloride (Normal Saline 0.9%) 1,000 mls @ 1,000 mls/hr IV BOLUS ONE Stop: 04/17/25 15:30 Last Admin: 04/17/25 14:54 Dose: 1,000 mls/hr Documented By: AGUSTIN Vital Signs Vital signs: Vital Signs - 8 hr 04/17/25 14:10 Temperature 97.3 F L Pulse Rate 108 H Respiratory Rate 18 Blood Pressure 200/102 H Pulse Oximetry 98 Oxygen Delivery Method Room Air Medical Decision Making Lab Data 04/17/25 14:50 MDM Narrative Medical decision making narrative: Patient is a 74-year-old female with a history of CKD diabetes hypertension presenting from home for evaluation of abnormal lab work. She states that she has been monitoring her kidney functions in conjunction with her PCP and washtub worker. States that she got her routine lab work today and had elevation in her creatinine. She states that she did have some decreased urinary output last week when she had some flu-like symptoms but states that she has been urinating normally now, she denies any symptoms such as chest pain shortness of breath fever chills nausea vomiting abdominal pain or any other GI/ symptoms at this time. She states that she saw her washtub worker Dr. Walker (who is associated with [facility]) in January and everything was normal. Patient had repeat lab work urinalysis and imaging performed here in the emergency department. Review of records does show patient has a history of CKD, patient follows with Dr. Pace (PCP) Discharge Plan Departure Prescriptions: No Action calcium citrate-vitamin D3 [Calcium Citrate + D] 315 mg-5 mcg (200 unit) tablet 1 tab PO lisinopril 2.5 mg tablet 2.5 mg PO DAILY Qty: 30 3RF aspirin [Adult Low Dose Aspirin] 81 mg tablet,delayed release (DR/EC) 81 mg PO DAILY lutein 20 mg tablet 20 mg PO DAILY Rx Instructions: give with meal/snack cholecalciferol (vitamin D3) 1,250 mcg (50,000 unit) capsule 1,250 mcg PO QMONTH multivitamin Tablet 1 tab PO DAILY cyanocobalamin (vitamin B-12) [B-12 DOTS] 500 mcg tablet 250 mcg PO DAILY Excedrin Extra Strength 250-250-65 mg tablet 1 tab PO Q4-6H PRN (Reason: Pain) (DME) True Metrix Glucose Test Strip Strip See Rx Instructions .ROUTE .COMPLEX Qty: 100 2RF Dose Instruction: USE TO TEST BLOOD GLUCOSE LEVELS THREE TO FIVE TIMES A DAY Rx Instructions: USE TO TEST BLOOD GLUCOSE LEVELS once a day, NOT insulin dependent metformin 1,000 mg tablet 1,000 mg PO BID Qty: 120 4RF diazepam 5 mg tablet 5 mg PO BID PRN (Reason: anxiety) Qty: 20 5RF hydrochlorothiazide 12.5 mg tablet 12.5 mg PO DAILY Qty: 30 0RF Referrals: Marti Pace MD [Primary Care Provider, Family Practice]
--- NOTE | 2025-04-17 14:37 | DI.CT.S_ITS ---
PROCEDURE: CT ABDOMEN PELVIS WO CON INDICATIONS: Acute renal failure TECHNIQUE: CT of the abdomen and pelvis was obtained without intravenous contrast. Coronal and sagittal reformats were performed. For radiation dose reduction, the following was used: automated exposure control, adjustment of mA and/or kV according to patient size. COMPARISON: None. FINDINGS: Image quality: Diagnostic. Lower Chest: No significant findings. ABDOMEN: Liver: No contour-deforming mass. Gallbladder: No radiopaque gallstones or wall thickening. The gallbladder is partially decompressed. Biliary ducts: No biliary dilation. Pancreas: No ductal dilation. Spleen: Size is within normal limits. Adrenal Glands: No adrenal nodules. Kidneys and Ureters: No hydronephrosis. A partially exophytic 1.2 cm simple cyst in the right interpolar kidney. No other contour deforming mass. Nor nephrolithiasis. Stomach and Bowel: Normal colonic caliber, without significant wall thickening. Normal appendix. Peritoneum: No abnormal intraperitoneal fluid. No free air. Ventral Wall: Small fat containing periumbilical hernia. Abdominal Nodes: No retroperitoneal or mesenteric adenopathy by size criteria. Vessels: Aorta and inferior vena cava are normal in size. PELVIS: Pelvic Organs: Unremarkable. Bladder: Unremarkable. Pelvic Nodes: No enlarged lymph nodes. Miscellaneous: No inguinal hernias are seen. Bones: No aggressive osseous abnormality. IMPRESSION: 1. No acute imaging abnormality in either kidney to correlate with acute renal failure. 2. No hydronephrosis or nephrolithiasis. Dictated by: Jaren Nunes M.D. on 04/17/2025 at 15:08 Approved by: Jaren Nunes M.D. on 04/17/2025 at 15:11
[2025-04-17] MEDS: SODIUM CHLORIDE 0.9% 1,000 ML 1000 ML IV ×2 (14:54→21:37)
[2025-04-17 15:07] LABS: Add Manual Diff / Slide Review NO; Hematocrit 38.6 % (36-46); Hemoglobin 13.3 g/dL (12.0-16.0); Lymphocytes Absolute Auto 2400 /uL (1100-4500); Mean Corpuscular HGB Conc 34.5 % (30-36); Mean Corpuscular Hemoglobin 29.3 PG (26-34); Mean Corpuscular Volume 85.0 fL (80-100); Platelet Count 340 X10^3/uL (150-400)
[2025-04-17 15:21] LABS: Alanine Aminotransferase 33 IU/L (<35); Albumin 5.0 g/dL (3.5-5.0); Albumin Globulin Ratio 1.4 (1.0-2.8); Alkaline Phosphatase 50 U/L (38-126); Blood Urea Nitrogen 54 mg/dL (7-17); Calcium 9.9 mg/dL (8.4-10.2); Carbon Dioxide 13 mmol/L (22-32); Chloride 95 mmol/L (98-107); Estimated Glomerular Filt Rate 11 mL/min (>60); Globulin 3.5 g/dL (1.7-4.1); Glucose 242 mg/dL (70-99); HEMOLYSIS 39 (0-50); Lipase 355 U/L (23-300); Magnesium 1.5 mg/dL (1.6-2.3); Potassium 4.5 mmol/L (3.4-5.1); Sodium 126 mmol/L (137-145); Total Protein 8.5 g/dL (6.3-8.2)
--- NOTE | 2025-04-17 15:44 | ED.RECABL ---
HPI - Recheck/Abnormal Lab/Rx <Ignacio Barry, DO - Last Filed: 04/17/25 16:48> General Chief Complaint: Recheck/Abnormal Lab/Rx Stated Complaint: Acute Renal Failure/Hyponutremia Time Seen by Provider: 04/17/25 14:17 Source: patient Mode of arrival: Family Vehicle History of Present Illness HPI narrative: Patient is a 74-year-old female past medical history of CKD hypertension diabetes presenting for abnormal lab work. She states that she had her routine lab work done to monitor her GFR and creatinine, states that it was abnormal today therefore came into the ED. Patient follows with Dr. Walker ([facility]). States last time was in January of 2025. He denies any other symptoms at this time. She does mention that a proximally 1 week ago she had flu-like symptoms caused her to have decreased p.o. intake and decreased urinary output but states that this is now completely back to normal. She denies any other symptoms at this time Related Data Home Medications ?Medication ?Instructions ?Recorded ?Confirmed aspirin 81 mg tablet,delayed 81 mg PO DAILY 09/10/23 02/12/25 release (Adult Low Dose Aspirin) [id number] 250 1 tab PO Q4-6H PRN Pain 09/10/23 02/12/25 mg-250 mg-65 mg tablet (Excedrin Extra Strength) cholecalciferol (vitamin D3) 1,250 1,250 mcg PO QMONTH 09/10/23 02/12/25 mcg (50,000 unit) capsule cyanocobalamin (vitamin B-12) 500 250 mcg PO DAILY 09/10/23 02/12/25 mcg tablet (B-12 DOTS) lutein 20 mg tablet 20 mg PO DAILY 09/10/23 02/12/25 multivitamin 1 tab PO DAILY 09/10/23 02/12/25 calcium 315 mg (as 1 tab PO osteopenia 08/07/24 02/12/25 citrate)-vitamin D3 5 mcg (200 unit) tablet (Calcium Citrate + D) Previous Rx's ?Medication ?Instructions ?Recorded blood sugar diagnostic (True #100 ea 09/14/24 Metrix Glucose Test Strip) lisinopril 2.5 mg tablet 2.5 mg PO DAILY #30 tabs 12/21/24 metformin 1,000 mg tablet 1,000 mg PO BID #120 tabs 02/13/25 diazepam 5 mg tablet 5 mg PO BID PRN anxiety #20 tabs 04/09/25 hydrochlorothiazide 12.5 mg tablet 12.5 mg PO DAILY #30 tabs 04/09/25 Allergies Allergy/AdvReac Type Severity Reaction Status Date / Time NSAIDS (Non-Steroidal Allergy Severe Anxiety Verified 04/17/25 14:21 Anti-Inflamma shellfish derived Allergy Severe Abdominal Verified 04/17/25 14:21 Pain Jodzrsa-XJZ-XeG Reductase Allergy Severe Anxiety Verified 04/17/25 14:21 Inhibitor amoxicillin Allergy Intermediate Rash Verified 04/17/25 14:21 progesterone Allergy Intermediate Verified 04/17/25 14:21 albuterol Allergy PVC's Verified 04/17/25 14:21 food Allergy Severe Abdominal Uncoded 04/17/25 14:21 Pain titanium oxide Allergy Severe Rash Uncoded 04/17/25 14:21 Review of Systems <Ignacio Barry DO - Last Filed: 04/17/25 16:48> Review of Systems Narrative: General: Abnormal lab work Denies fever, chills, weight loss HEENT: Denies headache, eye drainage, eye irritation, head trauma, sore throat, voice change Cardiovascular: Denies any chest pain, palpitations, tachycardia Respiratory: Denies any shortness of breath, cough, wheeze, stridor GI/: Denies any abdominal pain, nausea, vomiting, diarrhea, bright red blood per rectum, melanotic stools, urinary frequency, urinary retention, dysuria, hematuria MSK: Denies any joint pain, muscle pains, swelling Skin: Denies any rashes, lesions, discoloration Neuro: Denies any headache, lightheadedness, dizziness, fainting, weakness Psych: Denies SI/HI Exam <Ignacio Barry, - Last Filed: 04/17/25 16:48> Narrative Exam Narrative: General: Cooperative, well-developed, not in acute distress HEENT: Normocephalic, atraumatic, PERRLA, normal sclera, eyelids normal Neck: Active full range of motion, atraumatic Chest: Normal to inspection, negative crepitus, no overlying erythema ecchymosis Respiratory: Normal respiratory effort, not in acute respiratory distress, clear to auscultation bilaterally negative cough, wheeze, tachypnea, rhonchi, rales Cardiology: Regular rate rhythm negative gallop, murmur, rubs GI/: No tenderness to palpation, soft, non rigid, normal to inspection, exam deferred MSK: Full active range of motion in all 4 extremities, atraumatic, no tenderness to palpation of any bony prominences Skin: No rashes or lesions noted Neuro: Alert awake oriented x3, moves all 4 extremities spontaneously, cranial nerves intact, able to answer all questions appropriately follows commands appropriately Psych: Cooperative, negative suicidal or homicidal ideations Initial Vital Signs Initial Vital Signs: Vital Signs Temperature 97.3 F L 04/17/25 14:10 Pulse Rate 108 H 04/17/25 14:10 Respiratory Rate 18 04/17/25 14:10 Blood Pressure 200/102 H 04/17/25 14:10 Pulse Oximetry 98 04/17/25 14:10 Oxygen Delivery Method Room Air 04/17/25 14:10 <Kota Bridges MD - Last Filed: 04/18/25 00:06> Initial Vital Signs Initial Vital Signs: Vital Signs Temperature 97.3 F L 04/17/25 14:10 Pulse Rate 108 H 04/17/25 14:10 Respiratory Rate 18 04/17/25 14:10 Blood Pressure 200/102 H 04/17/25 14:10 Pulse Oximetry 98 04/17/25 14:10 Oxygen Delivery Method Room Air 04/17/25 14:10 Course <Ignacio Barry DO - Last Filed: 04/17/25 16:48> Orders Ordered: ED Orders 04/17/25 17:45 Creatinine Urine Random Stat Sodium Urine Random Stat Urinalysis and Microscopic Stat 04/17/25 18:27 Venous Blood Gas STAT 04/17/25 19:05 BMP [Basic Metabolic Panel] Stat 04/17/25 19:17 Venous Blood Gas Routine 04/17/25 22:55 BMP [Basic Metabolic Panel] Stat Discontinued Medications Sodium Chloride (Normal Saline 0.9%) 1,000 mls @ 1,000 mls/hr IV BOLUS ONE Stop: 04/17/25 15:30 Last Infusion: 04/17/25 16:05 Dose: Infused Documented By: Admin: 04/17/25 14:54 Dose: 1,000 mls/hr Documented By: AGUSTIN Sodium Chloride (Normal Saline 0.9%) 1,000 mls @ 1,000 mls/hr IV BOLUS ONE Stop: 04/17/25 22:32 Last Admin: 04/17/25 21:37 Dose: 1,000 mls/hr Documented By: AGUSTIN Vital Signs Vital signs: Vital Signs - 8 hr 04/17/25 16:30 04/17/25 16:30 04/17/25 17:00 Pulse Rate 83 Respiratory Rate Blood Pressure 118/62 116/58 L Pulse Oximetry 98 Oxygen Delivery Method 04/17/25 17:00 04/17/25 17:30 04/17/25 17:30 Pulse Rate 84 87 Respiratory Rate 17 Blood Pressure 127/61 Pulse Oximetry 96 97 Oxygen Delivery Method Room Air 04/17/25 17:55 04/17/25 17:55 04/17/25 18:00 Pulse Rate 88 Respiratory Rate Blood Pressure 156/73 H 138/65 Pulse Oximetry 99 Oxygen Delivery Method 04/17/25 18:00 04/17/25 18:30 04/17/25 18:30 Pulse Rate 87 90 Respiratory Rate 18 Blood Pressure 137/65 Pulse Oximetry 99 99 Oxygen Delivery Method Room Air 04/17/25 19:00 04/17/25 19:00 04/17/25 19:30 Pulse Rate 89 Respiratory Rate 17 Blood Pressure 130/61 140/66 Pulse Oximetry 97 Oxygen Delivery Method Room Air 04/17/25 19:30 04/17/25 20:00 04/17/25 20:00 Pulse Rate 87 92 H Respiratory Rate Blood Pressure 138/64 Pulse Oximetry 98 97 Oxygen Delivery Method 04/17/25 20:30 04/17/25 21:00 04/17/25 21:14 Pulse Rate 84 93 H 93 H Respiratory Rate 18 Blood Pressure Pulse Oximetry 96 97 97 Oxygen Delivery Method Room Air 04/17/25 21:14 04/17/25 21:30 04/17/25 21:31 Pulse Rate 98 H Respiratory Rate Blood Pressure 173/81 H 189/81 H Pulse Oximetry 96 Oxygen Delivery Method 04/17/25 21:31 04/17/25 22:00 04/17/25 22:00 Pulse Rate 97 H 91 H Respiratory Rate 17 Blood Pressure 160/110 H Pulse Oximetry 96 98 Oxygen Delivery Method Room Air Room Air 04/17/25 22:30 04/17/25 22:30 04/17/25 23:02 Pulse Rate 87 Respiratory Rate 18 Blood Pressure 121/60 Pulse Oximetry 97 96 Oxygen Delivery Method Room Air <Kota Bridges MD - Last Filed: 04/18/25 00:06> Course Course Narrative: 18:00 Patient care transferred to mt at the change of shift by Dr. Barry, with disposition pending. This is a 74-year-old female patient with a history of hypertension, type 2 diabetes and stage 3 chronic kidney disease who was noted to have a creatinine of 4.09 and a GFR of 11 on labs today in outpatient clinic and was sent to the ER. She has no new symptoms. However she is sent in for worsening renal function and acute on chronic kidney failure/injury. Lab work tonight in the ER confirms the worsening renal function with a creatinine of 3.94 and a GFR of 11. Her last labs 5-6 weeks ago revealed a creatinine of 1.20 and a GFR of 48. She has mild hyponatremia of 126 and hypomagnesemia of 1.5. Bicarb is 13 revealing a probable metabolic acidosis related to her renal compromise. ER physician before me had attempted to talk to the director business management at [facility] who apparently refused to call back because he says he is ?not taking calls from other hospitals. ? As mentioned, she currently has no symptoms although she had mild flu symptoms last week with decreased appetite and decreased urine output but those have resolved. 20:50 [facility] in [place] reported that they had no beds. We put in calls to [place] and I spoke with Dr. Guevara, nephrology team who feels the patient should be transferred there for Nephrology evaluation. We are awaiting callback from the hospitalists for accepting doctor. 21:00 Patient is declining transfer. She is wondering about being admitted here. 21:25 I discussed her care again with Nephrology who felt she should be at their facility since they have not determine exactly what is causing her abrupt change in renal function. Patient again refused to be transferred. She would like to recheck her renal function after another L of fluid. 22:50 I discussed the patient's care with Dr. Solares, hospitalist at [place] who felt the patient could be appropriately managed here with hydration and monitoring renal function. 23:15 Patient's BMP returns with improved creatinine of 3.32 and a GFR of 14. Sodium 129. 23:45 I discussed the patient's care with Dr. Osorio, hospitalist who agrees to admit her for acute on chronic renal injury with gradually improving renal function with IV fluids. Patient has made it clear to me that she does not want dialysis Orders Ordered: ED Orders 04/17/25 17:45 Creatinine Urine Random Stat Sodium Urine Random Stat Urinalysis and Microscopic Stat 04/17/25 18:27 Venous Blood Gas STAT 04/17/25 19:05 BMP [Basic Metabolic Panel] Stat 04/17/25 19:17 Venous Blood Gas Routine 04/17/25 22:55 BMP [Basic Metabolic Panel] Stat Discontinued Medications Sodium Chloride (Normal Saline 0.9%) 1,000 mls @ 1,000 mls/hr IV BOLUS ONE Stop: 04/17/25 15:30 Last Infusion: 04/17/25 16:05 Dose: Infused Documented By: Admin: 04/17/25 14:54 Dose: 1,000 mls/hr Documented By: AGUSTIN Sodium Chloride (Normal Saline 0.9%) 1,000 mls @ 1,000 mls/hr IV BOLUS ONE Stop: 04/17/25 22:32 Last Admin: 04/17/25 21:37 Dose: 1,000 mls/hr Documented By: AGUSTIN Vital Signs Vital signs: Vital Signs - 8 hr 04/17/25 16:30 04/17/25 16:30 04/17/25 17:00 Pulse Rate 83 Respiratory Rate Blood Pressure 118/62 116/58 L Pulse Oximetry 98 Oxygen Delivery Method 04/17/25 17:00 04/17/25 17:30 04/17/25 17:30 Pulse Rate 84 87 Respiratory Rate 17 Blood Pressure 127/61 Pulse Oximetry 96 97 Oxygen Delivery Method Room Air 04/17/25 17:55 04/17/25 17:55 04/17/25 18:00 Pulse Rate 88 Respiratory Rate Blood Pressure 156/73 H 138/65 Pulse Oximetry 99 Oxygen Delivery Method 04/17/25 18:00 04/17/25 18:30 04/17/25 18:30 Pulse Rate 87 90 Respiratory Rate 18 Blood Pressure 137/65 Pulse Oximetry 99 99 Oxygen Delivery Method Room Air 04/17/25 19:00 04/17/25 19:00 04/17/25 19:30 Pulse Rate 89 Respiratory Rate 17 Blood Pressure 130/61 140/66 Pulse Oximetry 97 Oxygen Delivery Method Room Air 04/17/25 19:30 04/17/25 20:00 04/17/25 20:00 Pulse Rate 87 92 H Respiratory Rate Blood Pressure 138/64 Pulse Oximetry 98 97 Oxygen Delivery Method 04/17/25 20:30 04/17/25 21:00 04/17/25 21:14 Pulse Rate 84 93 H 93 H Respiratory Rate 18 Blood Pressure Pulse Oximetry 96 97 97 Oxygen Delivery Method Room Air 04/17/25 21:14 04/17/25 21:30 04/17/25 21:31 Pulse Rate 98 H Respiratory Rate Blood Pressure 173/81 H 189/81 H Pulse Oximetry 96 Oxygen Delivery Method 04/17/25 21:31 04/17/25 22:00 04/17/25 22:00 Pulse Rate 97 H 91 H Respiratory Rate 17 Blood Pressure 160/110 H Pulse Oximetry 96 98 Oxygen Delivery Method Room Air Room Air 04/17/25 22:30 04/17/25 22:30 04/17/25 23:02 Pulse Rate 87 Respiratory Rate 18 Blood Pressure 121/60 Pulse Oximetry 97 96 Oxygen Delivery Method Room Air MDM - Recheck/Abnormal Lab/Rx <Ignacio Barry, DO - Last Filed: 04/17/25 16:48> Lab Data 04/17/25 14:50 04/17/25 22:55 Labs: Lab Results 04/17/25 04/17/25 04/17/25 Range/Units 14:50 17:45 19:05 WBC 8.2 (4.5-11.0) X10^3/uL RBC 4.54 (4.0-5.2) X10^6/uL Hgb 13.3 (12.0-16.0) g/dL Hct 38.6 (36-46) % MCV 85.0 (80-100) fL MCH 29.3 (26-34) PG MCHC 34.5 (30-36) % RDW 12.9 (11.6-14.8) % Plt Count 340 (150-400) X10^3/uL Neut % (Auto) 61.5 (50-75) % Lymph % (Auto) 29.9 (25-40) % [place] % (Auto) 6.1 (3-14) % Eos % (Auto) 1.7 L (2-4) % Baso % (Auto) 0.8 (0-2) % Neut # (Auto) 5000 (1736-3435) /uL Lymph # (Auto) 2400 (6830-2622) /uL [place] # (Auto) 500 (0-900) /uL Eos # (Auto) 100 (0-450) /uL Baso # (Auto) 100 (0-100) /uL VBG pH (7.33-7.43) VBG pCO2 (45-50) mmHg VBG pO2 (35-45) mmHg VBG HCO3 (24-28) mmol/L VBG Total CO2 (24-29) mmol/L VBG O2 Saturation (70-75) % VBG Base Excess (0-4) mmol/L Sodium 126 L 131 L (137-145) mmol/L Potassium 4.5 4.5 (3.4-5.1) mmol/L Chloride 95 L 100 (98-107) mmol/L Carbon Dioxide 13 L 14 L (22-32) mmol/L BUN 54 H 50 H (7-17) mg/dL Creatinine 3.94 H 3.70 H (0.52-1.04) mg/dL Estimated GFR 11 L 12 L (>60) mL/min BUN/Creatinine Ratio 13.7 13.5 (6-22) Glucose 242 H 102 H D (70-99) mg/dL Calcium 9.9 9.6 (8.4-10.2) mg/dL Magnesium 1.5 L (1.6-2.3) mg/dL Total Bilirubin 0.5 (0.2-1.3) mg/dL AST 38 H (14-36) IU/L ALT 33 (<35) IU/L Alkaline Phosphatase 50 (38-126) U/L Total Protein 8.5 H (6.3-8.2) g/dL Albumin 5.0 (3.5-5.0) g/dL Globulin 3.5 (1.7-4.1) g/dL Albumin/Globulin Ratio 1.4 (1.0-2.8) Lipase 355 H (23-300) U/L Urine Color Yellow Urine Appearance Clear Urine pH 6.0 (4.5-8.0) Ur Specific [place] <=1.005 (1.000-1.035) Urine Protein Negative (Negative) Urine Glucose (UA) Trace H (Negative) g/dL Urine Ketones Negative (NEGATIVE) Urine Occult Blood Trace-intact (Negative) Urine Nitrate Negative (Negative) Urine Bilirubin Negative (NEGATIVE) Urine Urobilinogen 0.2 (0.2) E.U./dL Ur Leukocyte Esterase Negative (NEGATIVE) Urine RBC None seen (0-5/HPF) Urine WBC None seen (0-5/HPF) Ur Squamous Epith Cells 0-1 /hpf (0-5/HPF) Urine Bacteria None seen (None) Ur Culture Indicated? Cult not indicated Vol Urine Centrifuged 10ml (spun) Ur Random Sodium 64 (30-90) mmol/L Urine Creatinine 21.11 mg/dL 04/17/25 04/17/25 Range/Units 19:17 22:55 WBC (4.5-11.0) X10^3/uL RBC (4.0-5.2) X10^6/uL Hgb (12.0-16.0) g/dL Hct (36-46) % MCV (80-100) fL MCH (26-34) PG MCHC (30-36) % RDW (11.6-14.8) % Plt Count (150-400) X10^3/uL Neut % (Auto) (50-75) % Lymph % (Auto) (25-40) % [place] % (Auto) (3-14) % Eos % (Auto) (2-4) % Baso % (Auto) (0-2) % Neut # (Auto) (8339-8714) /uL Lymph # (Auto) (3948-1652) /uL [place] # (Auto) (0-900) /uL Eos # (Auto) (0-450) /uL Baso # (Auto) (0-100) /uL VBG pH 7.30 L (7.33-7.43) VBG pCO2 37.3 L (45-50) mmHg VBG pO2 46 H (35-45) mmHg VBG HCO3 18 L (24-28) mmol/L VBG Total CO2 18 L (24-29) mmol/L VBG O2 Saturation 77 H (70-75) % VBG Base Excess -7.3 L (0-4) mmol/L Sodium 129 L (137-145) mmol/L Potassium 4.2 (3.4-5.1) mmol/L Chloride 104 (98-107) mmol/L Carbon Dioxide 14 L (22-32) mmol/L BUN 47 H (7-17) mg/dL Creatinine 3.32 H (0.52-1.04) mg/dL Estimated GFR 14 L (>60) mL/min BUN/Creatinine Ratio 14.2 (6-22) Glucose 231 H D (70-99) mg/dL Calcium 8.7 (8.4-10.2) mg/dL Magnesium (1.6-2.3) mg/dL Total Bilirubin (0.2-1.3) mg/dL AST (14-36) IU/L ALT (<35) IU/L Alkaline Phosphatase (38-126) U/L Total Protein (6.3-8.2) g/dL Albumin (3.5-5.0) g/dL Globulin (1.7-4.1) g/dL Albumin/Globulin Ratio (1.0-2.8) Lipase (23-300) U/L Urine Color Urine Appearance Urine pH (4.5-8.0) Ur Specific [place] (1.000-1.035) Urine Protein (Negative) Urine Glucose (UA) (Negative) g/dL Urine Ketones (NEGATIVE) Urine Occult Blood (Negative) Urine Nitrate (Negative) Urine Bilirubin (NEGATIVE) Urine Urobilinogen (0.2) E.U./dL Ur Leukocyte Esterase (NEGATIVE) Urine RBC (0-5/HPF) Urine WBC (0-5/HPF) Ur Squamous Epith Cells (0-5/HPF) Urine Bacteria (None) Ur Culture Indicated? Vol Urine Centrifuged Ur Random Sodium (30-90) mmol/L Urine Creatinine mg/dL Urine Dip Bedside Urine Glucose 100 mg/dl Bedside Urine Bilirubin - Negative Bedside Urine Ketone - Negative Urine Specific [place] 1.010 Bedside Urine Occult Blood +/- Bedside Urine pH 6.0 Bedside Urine Protein - Negative Bedside Urine Urobilinogen - Negative Bedside Urine Nitrite - Negative Bedside Urine Leukocytes - Negative Esterase MDM Narrative Medical decision making narrative: 74-year-old female with a history of CKD hypertension diabetes on metformin presents to the emergency department from home for abnormal lab work. Patient states that she had a routine lab work performed by her primary care doctor outpatient to monitor her kidney functions states that it was severely out of range therefore came into the ED for further evaluation treatment. To note she states that she had decreased p.o. intake and decreased urinary output a proximally 1 week ago secondary to flu-like symptoms but states that this is resolve states that she has been urinating okay and tolerating p.o. liquids and solids. Reviewed patient's lab work that showed sodium of 127, potassium 4.4, BUN 51, creatinine 4.09 with a GFR of 11, patient's lab work was repeated sodium 126, chloride 95, BUN 54, creatinine 3.94, GFR 11. Patient's magnesium was slightly decreased at 0.5, The remainder of her lab work is unremarkable. Patient states that she has been able to tolerate all her medications which does include hydrochlorothiazide, a discussion was made with the patient previously by primary care doctor to potentially switch this to torsemide proposed by the director business management for better management of her blood pressure and electrolytes given a history of hyperkalemia however she states that she is worried that she would have an allergic reaction therefore it was decided that patient not to start this. Patient did have CT of her abdomen performed here in the emergency department did not show any acute intra abdominal obstruction or pathologies given patient with worsening creatinine and GFR we will reach out to Nephrology. 1645: Attempted to reach out to [facility] however we were informed that the director business management is a [facility] physician and states that his contract does not allow him to cover our hospital therefore refusing to consult with the patient. At this point we will reach out to [facility] to discuss case with Nephrology. <Kota Bridges MD - Last Filed: 04/18/25 00:06> Lab Data Labs: Lab Results 04/17/25 04/17/25 04/17/25 Range/Units 14:50 17:45 19:05 WBC 8.2 (4.5-11.0) X10^3/uL RBC 4.54 (4.0-5.2) X10^6/uL Hgb 13.3 (12.0-16.0) g/dL Hct 38.6 (36-46) % MCV 85.0 (80-100) fL MCH 29.3 (26-34) PG MCHC 34.5 (30-36) % RDW 12.9 (11.6-14.8) % Plt Count 340 (150-400) X10^3/uL Neut % (Auto) 61.5 (50-75) % Lymph % (Auto) 29.9 (25-40) % [place] % (Auto) 6.1 (3-14) % Eos % (Auto) 1.7 L (2-4) % Baso % (Auto) 0.8 (0-2) % Neut # (Auto) 5000 (5394-6471) /uL Lymph # (Auto) 2400 (3131-7788) /uL [place] # (Auto) 500 (0-900) /uL Eos # (Auto) 100 (0-450) /uL Baso # (Auto) 100 (0-100) /uL VBG pH (7.33-7.43) VBG pCO2 (45-50) mmHg VBG pO2 (35-45) mmHg VBG HCO3 (24-28) mmol/L VBG Total CO2 (24-29) mmol/L VBG O2 Saturation (70-75) % VBG Base Excess (0-4) mmol/L Sodium 126 L 131 L (137-145) mmol/L Potassium 4.5 4.5 (3.4-5.1) mmol/L Chloride 95 L 100 (98-107) mmol/L Carbon Dioxide 13 L 14 L (22-32) mmol/L BUN 54 H 50 H (7-17) mg/dL Creatinine 3.94 H 3.70 H (0.52-1.04) mg/dL Estimated GFR 11 L 12 L (>60) mL/min BUN/Creatinine Ratio 13.7 13.5 (6-22) Glucose 242 H 102 H D (70-99) mg/dL Calcium 9.9 9.6 (8.4-10.2) mg/dL Magnesium 1.5 L (1.6-2.3) mg/dL Total Bilirubin 0.5 (0.2-1.3) mg/dL AST 38 H (14-36) IU/L ALT 33 (<35) IU/L Alkaline Phosphatase 50 (38-126) U/L Total Protein 8.5 H (6.3-8.2) g/dL Albumin 5.0 (3.5-5.0) g/dL Globulin 3.5 (1.7-4.1) g/dL Albumin/Globulin Ratio 1.4 (1.0-2.8) Lipase 355 H (23-300) U/L Urine Color Yellow Urine Appearance Clear Urine pH 6.0 (4.5-8.0) Ur Specific [place] <=1.005 (1.000-1.035) Urine Protein Negative (Negative) Urine Glucose (UA) Trace H (Negative) g/dL Urine Ketones Negative (NEGATIVE) Urine Occult Blood Trace-intact (Negative) Urine Nitrate Negative (Negative) Urine Bilirubin Negative (NEGATIVE) Urine Urobilinogen 0.2 (0.2) E.U./dL Ur Leukocyte Esterase Negative (NEGATIVE) Urine RBC None seen (0-5/HPF) Urine WBC None seen (0-5/HPF) Ur Squamous Epith Cells 0-1 /hpf (0-5/HPF) Urine Bacteria None seen (None) Ur Culture Indicated? Cult not indicated Vol Urine Centrifuged 10ml (spun) Ur Random Sodium 64 (30-90) mmol/L Urine Creatinine 21.11 mg/dL 04/17/25 04/17/25 Range/Units 19:17 22:55 WBC (4.5-11.0) X10^3/uL RBC (4.0-5.2) X10^6/uL Hgb (12.0-16.0) g/dL Hct (36-46) % MCV (80-100) fL MCH (26-34) PG MCHC (30-36) % RDW (11.6-14.8) % Plt Count (150-400) X10^3/uL Neut % (Auto) (50-75) % Lymph % (Auto) (25-40) % [place] % (Auto) (3-14) % Eos % (Auto) (2-4) % Baso % (Auto) (0-2) % Neut # (Auto) (5657-7759) /uL Lymph # (Auto) (8360-7566) /uL [place] # (Auto) (0-900) /uL Eos # (Auto) (0-450) /uL Baso # (Auto) (0-100) /uL VBG pH 7.30 L (7.33-7.43) VBG pCO2 37.3 L (45-50) mmHg VBG pO2 46 H (35-45) mmHg VBG HCO3 18 L (24-28) mmol/L VBG Total CO2 18 L (24-29) mmol/L VBG O2 Saturation 77 H (70-75) % VBG Base Excess -7.3 L (0-4) mmol/L Sodium 129 L (137-145) mmol/L Potassium 4.2 (3.4-5.1) mmol/L Chloride 104 (98-107) mmol/L Carbon Dioxide 14 L (22-32) mmol/L BUN 47 H (7-17) mg/dL Creatinine 3.32 H (0.52-1.04) mg/dL Estimated GFR 14 L (>60) mL/min BUN/Creatinine Ratio 14.2 (6-22) Glucose 231 H D (70-99) mg/dL Calcium 8.7 (8.4-10.2) mg/dL Magnesium (1.6-2.3) mg/dL Total Bilirubin (0.2-1.3) mg/dL AST (14-36) IU/L ALT (<35) IU/L Alkaline Phosphatase (38-126) U/L Total Protein (6.3-8.2) g/dL Albumin (3.5-5.0) g/dL Globulin (1.7-4.1) g/dL Albumin/Globulin Ratio (1.0-2.8) Lipase (23-300) U/L Urine Color Urine Appearance Urine pH (4.5-8.0) Ur Specific [place] (1.000-1.035) Urine Protein (Negative) Urine Glucose (UA) (Negative) g/dL Urine Ketones (NEGATIVE) Urine Occult Blood (Negative) Urine Nitrate (Negative) Urine Bilirubin (NEGATIVE) Urine Urobilinogen (0.2) E.U./dL Ur Leukocyte Esterase (NEGATIVE) Urine RBC (0-5/HPF) Urine WBC (0-5/HPF) Ur Squamous Epith Cells (0-5/HPF) Urine Bacteria (None) Ur Culture Indicated? Vol Urine Centrifuged Ur Random Sodium (30-90) mmol/L Urine Creatinine mg/dL Urine Dip Bedside Urine Glucose 100 mg/dl Bedside Urine Bilirubin - Negative Bedside Urine Ketone - Negative Urine Specific [place] 1.010 Bedside Urine Occult Blood +/- Bedside Urine pH 6.0 Bedside Urine Protein - Negative Bedside Urine Urobilinogen - Negative Bedside Urine Nitrite - Negative Bedside Urine Leukocytes - Negative Esterase [facility] Narrative Medical decision making narrative: 74-year-old female with a history of CKD hypertension diabetes on metformin presents to the emergency department from home for abnormal lab work. Patient states that she had a routine lab work performed by her primary care doctor outpatient to monitor her kidney functions states that it was severely out of range therefore came into the ED for further evaluation treatment. To note she states that she had decreased p.o. intake and decreased urinary output a proximally 1 week ago secondary to flu-like symptoms but states that this is resolve states that she has been urinating okay and tolerating p.o. liquids and solids. Reviewed patient's lab work that showed sodium of 127, potassium 4.4, BUN 51, creatinine 4.09 with a GFR of 11, patient's lab work was repeated sodium 126, chloride 95, BUN 54, creatinine 3.94, GFR 11. Patient's magnesium was slightly decreased at 0.5, The remainder of her lab work is unremarkable. Patient states that she has been able to tolerate all her medications which does include hydrochlorothiazide, a discussion was made with the patient previously by primary care doctor to potentially switch this to torsemide proposed by the director business management for better management of her blood pressure and electrolytes given a history of hyperkalemia however she states that she is worried that she would have an allergic reaction therefore it was decided that patient not to start this. Patient did have CT of her abdomen performed here in the emergency department did not show any acute intra abdominal obstruction or pathologies given patient with worsening creatinine and GFR we will reach out to Nephrology. 1645: Attempted to reach out to [facility] however we were informed that the director business management is a [facility] physician and states that his contract does not allow him to cover our hospital therefore refusing to consult with the patient. At this point we will reach out to [facility] to discuss case with Nephrology. 23:55 Patient has had IV hydration and multiple labs to assess her renal function in his gradually improving. We have discussed her care with Nephrology and multiple hospitalists. Hospitalist here agrees to admit her to continue to monitor renal function. Nephrology at [place] is willing to consult by phone as needed. Patient has made it clear that she does not want dialysis. Discharge Plan Departure Patient Disposition: Admitted As Inpatient Clinical Impression: Acute kidney injury superimposed on stage 3a chronic kidney disease Admit Date/Time: 04/17/25 23:49 Admit Provider: Konstantin Osorio
[2025-04-17 19:22] LABS: Base Excess VBG -7.3 mmol/L (0-4); HCO3 VBG 18 mmol/L (24-28); Oxygen Saturation VBG 77 % (70-75); PCO2 VBG 37.3 mmHg (45-50); PO2 VBG 46 mmHg (35-45); Total CO2 VBG 18 mmol/L (24-29); pH VBG 7.30 (7.33-7.43)
[2025-04-17 19:48] LABS: Blood Urea Nitrogen 50 mg/dL (7-17); Calcium 9.6 mg/dL (8.4-10.2); Carbon Dioxide 14 mmol/L (22-32); Chloride 100 mmol/L (98-107); Estimated Glomerular Filt Rate 12 mL/min (>60); Glucose 102 mg/dL (70-99); HEMOLYSIS < 15 (0-50); Potassium 4.5 mmol/L (3.4-5.1); Sodium 131 mmol/L (137-145)
[2025-04-17 23:15] LABS: Appearance Urine UA CLEAR; Bilirubin Urine UA NEGATIVE (NEGATIVE); Color Urine UA YELLOW; Glucose Urine UA TRACE g/dL (Negative); Ketones Urine UA NEGATIVE (NEGATIVE); Leukocyte Esterase Urine UA NEGATIVE (NEGATIVE); Nitrite Urine UA NEGATIVE (Negative); Occult Blood Urine UA TRACE-INTACT (Negative); Protein Urine UA NEGATIVE (Negative); Specific Gravity Urine UA <=1.005 (1.000-1.035); Urobilinogen Urine UA 0.2 E.U./dL (0.2)
[2025-04-17 23:16] LABS: pH Urine UA 6.0 (4.5-8.0)
[2025-04-17 23:21] LABS: Culture Indicated Urine Cult Not Indicated
[2025-04-17 23:25] LABS: Blood Urea Nitrogen 47 mg/dL (7-17); Calcium 8.7 mg/dL (8.4-10.2); Carbon Dioxide 14 mmol/L (22-32); Chloride 104 mmol/L (98-107); Estimated Glomerular Filt Rate 14 mL/min (>60); Glucose 231 mg/dL (70-99); HEMOLYSIS < 15 (0-50); Potassium 4.2 mmol/L (3.4-5.1); Sodium 129 mmol/L (137-145)
[2025-04-18] VITALS (16 sets, daily range): BP systolic 125–164; BP diastolic 63–90; PULSE 71–89; RESP 15–20; TEMP 36.1–36.6; O2SAT 92–99; BMI 30.2
--- NOTE | 2025-04-18 00:25 | PM.HP.1 ---
History of Present Illness History of Present Illness Date Patient Seen: 04/18/25 Time Patient Seen: 00:25 Chief complaint: Acute Renal Failure/Hyponutremia Narrative: The pt is a 74 yo with known stage 4-5 CKD who developed a URI with sore throat one week ago but got better after several days and then due to hyperglycemia started to fast intermittantly. She had routine labs drawn this morning that showed a Cr of 4.5, which is new for her, her baseline is around 2.7. The pt states that over the past 4 months her blood sugars have been very poorly controlled. She currently denies any back pain, fevers, chills, hematuria, N/V. Meds Home Medications and Allergies Home Medications ?Medication ?Instructions ?Recorded ?Confirmed ?Type aspirin 81 mg tablet,delayed 81 mg PO DAILY 09/10/23 02/12/25 History release (Adult Low Dose Aspirin) [id number]-yxxsehjtjixnw-lbkkkeac 250 1 tab PO Q4-6H PRN Pain 09/10/23 02/12/25 History mg-250 mg-65 mg tablet (Excedrin Extra Strength) cholecalciferol (vitamin D3) 1,250 1,250 mcg PO QMONTH 09/10/23 02/12/25 History mcg (50,000 unit) capsule cyanocobalamin (vitamin B-12) 500 250 mcg PO DAILY 09/10/23 02/12/25 History mcg tablet (B-12 DOTS) lutein 20 mg tablet 20 mg PO DAILY 09/10/23 02/12/25 History multivitamin 1 tab PO DAILY 09/10/23 02/12/25 History calcium 315 mg (as 1 tab PO osteopenia 08/07/24 02/12/25 History citrate)-vitamin D3 5 mcg (200 unit) tablet (Calcium Citrate + D) blood sugar diagnostic (True #100 ea 09/14/24 02/12/25 Rx Metrix Glucose Test Strip) lisinopril 2.5 mg tablet 2.5 mg PO DAILY #30 tabs 12/21/24 02/12/25 Rx metformin 1,000 mg tablet 1,000 mg PO BID #120 tabs 02/13/25 Rx diazepam 5 mg tablet 5 mg PO BID PRN anxiety #20 tabs 04/09/25 Rx hydrochlorothiazide 12.5 mg tablet 12.5 mg PO DAILY #30 tabs 04/09/25 Rx Allergies Allergy/AdvReac Type Severity Reaction Status Date / Time NSAIDS (Non-Steroidal Allergy Severe Anxiety Verified 04/17/25 14:21 Anti-Inflamma shellfish derived Allergy Severe Abdominal Verified 04/17/25 14:21 Pain Aesmzkw-XLY-MlQ Reductase Allergy Severe Anxiety Verified 04/17/25 14:21 Inhibitor amoxicillin Allergy Intermediate Rash Verified 04/17/25 14:21 progesterone Allergy Intermediate Verified 04/17/25 14:21 albuterol Allergy PVC's Verified 04/17/25 14:21 food Allergy Severe Abdominal Uncoded 04/17/25 14:21 Pain titanium oxide Allergy Severe Rash Uncoded 04/17/25 14:21 Exam Vital Signs (past 8 hours): - 04/17/25 16:30 04/17/25 16:30 04/17/25 17:00 Pulse Rate 83 Respiratory Rate Blood Pressure 118/62 116/58 L Pulse Oximetry 98 Oxygen Delivery Method 04/17/25 17:00 04/17/25 17:30 04/17/25 17:30 Pulse Rate 84 87 Respiratory Rate 17 Blood Pressure 127/61 Pulse Oximetry 96 97 Oxygen Delivery Method Room Air 04/17/25 17:55 04/17/25 17:55 04/17/25 18:00 Pulse Rate 88 Respiratory Rate Blood Pressure 156/73 H 138/65 Pulse Oximetry 99 Oxygen Delivery Method 04/17/25 18:00 04/17/25 18:30 04/17/25 18:30 Pulse Rate 87 90 Respiratory Rate 18 Blood Pressure 137/65 Pulse Oximetry 99 99 Oxygen Delivery Method Room Air 04/17/25 19:00 04/17/25 19:00 04/17/25 19:30 Pulse Rate 89 Respiratory Rate 17 Blood Pressure 130/61 140/66 Pulse Oximetry 97 Oxygen Delivery Method Room Air 04/17/25 19:30 04/17/25 20:00 04/17/25 20:00 Pulse Rate 87 92 H Respiratory Rate Blood Pressure 138/64 Pulse Oximetry 98 97 Oxygen Delivery Method 04/17/25 20:30 04/17/25 21:00 04/17/25 21:14 Pulse Rate 84 93 H 93 H Respiratory Rate 18 Blood Pressure Pulse Oximetry 96 97 97 Oxygen Delivery Method Room Air 04/17/25 21:14 04/17/25 21:30 04/17/25 21:31 Pulse Rate 98 H Respiratory Rate Blood Pressure 173/81 H 189/81 H Pulse Oximetry 96 Oxygen Delivery Method 04/17/25 21:31 04/17/25 22:00 04/17/25 22:00 Pulse Rate 97 H 91 H Respiratory Rate 17 Blood Pressure 160/110 H Pulse Oximetry 96 98 Oxygen Delivery Method Room Air Room Air 04/17/25 22:30 04/17/25 22:30 04/17/25 23:02 Pulse Rate 87 Respiratory Rate 18 Blood Pressure 121/60 Pulse Oximetry 97 96 Oxygen Delivery Method Room Air 04/17/25 23:04 04/17/25 23:04 04/17/25 23:30 Pulse Rate 90 84 Respiratory Rate 18 Blood Pressure 147/66 H Pulse Oximetry 98 97 Oxygen Delivery Method 04/17/25 23:30 04/18/25 00:00 04/18/25 00:00 Pulse Rate 81 Respiratory Rate 17 Blood Pressure 121/63 133/63 Pulse Oximetry 96 Oxygen Delivery Method Room Air Oxygen Delivery Method Room Air Const General: cooperative and comfortable Resp Auscultation: clear to auscultation bilaterally Cardio Rate: regular rate Rhythm: regular rhythm Extrem General: edema Objective Labs 04/17/25 14:50 04/17/25 22:55 Labs: Laboratory Results - last 24 hr 04/17/25 04/17/25 04/17/25 14:50 17:45 19:05 WBC 8.2 RBC 4.54 Hgb 13.3 Hct 38.6 MCV 85.0 MCH 29.3 MCHC 34.5 RDW 12.9 Plt Count 340 Neut % (Auto) 61.5 Lymph % (Auto) 29.9 [place] % (Auto) 6.1 Eos % (Auto) 1.7 L Baso % (Auto) 0.8 Neut # (Auto) 5000 Lymph # (Auto) 2400 [place] # (Auto) 500 Eos # (Auto) 100 Baso # (Auto) 100 VBG pH VBG pCO2 VBG pO2 VBG HCO3 VBG Total CO2 VBG O2 Saturation VBG Base Excess Sodium 126 L 131 L Potassium 4.5 4.5 Chloride 95 L 100 Carbon Dioxide 13 L 14 L BUN 54 H 50 H Creatinine 3.94 H 3.70 H Estimated GFR 11 L 12 L BUN/Creatinine Ratio 13.7 13.5 Glucose 242 H 102 H D Calcium 9.9 9.6 Magnesium 1.5 L Total Bilirubin 0.5 AST 38 H ALT 33 Alkaline Phosphatase 50 Total Protein 8.5 H Albumin 5.0 Globulin 3.5 Albumin/Globulin Ratio 1.4 Lipase 355 H Urine Color Yellow Urine Appearance Clear Urine pH 6.0 Ur Specific [place] <=1.005 Urine Protein Negative Urine Glucose (UA) Trace H Urine Ketones Negative Urine Occult Blood Trace-intact Urine Nitrate Negative Urine Bilirubin Negative Urine Urobilinogen 0.2 Ur Leukocyte Esterase Negative Urine RBC None seen Urine WBC None seen Ur Squamous Epith Cells 0-1 /hpf Urine Bacteria None seen Ur Culture Indicated? Cult not indicated Vol Urine Centrifuged 10ml (spun) Ur Random Sodium 64 Urine Creatinine 21.11 04/17/25 04/17/25 19:17 22:55 WBC RBC Hgb Hct MCV MCH MCHC RDW Plt Count Neut % (Auto) Lymph % (Auto) [place] % (Auto) Eos % (Auto) Baso % (Auto) Neut # (Auto) Lymph # (Auto) [place] # (Auto) Eos # (Auto) Baso # (Auto) VBG pH 7.30 L VBG pCO2 37.3 L VBG pO2 46 H VBG HCO3 18 L VBG Total CO2 18 L VBG O2 Saturation 77 H VBG Base Excess -7.3 L Sodium 129 L Potassium 4.2 Chloride 104 Carbon Dioxide 14 L BUN 47 H Creatinine 3.32 H Estimated GFR 14 L BUN/Creatinine Ratio 14.2 Glucose 231 H D Calcium 8.7 Magnesium Total Bilirubin AST ALT Alkaline Phosphatase Total Protein Albumin Globulin Albumin/Globulin Ratio Lipase Urine Color Urine Appearance Urine pH Ur Specific [place] Urine Protein Urine Glucose (UA) Urine Ketones Urine Occult Blood Urine Nitrate Urine Bilirubin Urine Urobilinogen Ur Leukocyte Esterase Urine RBC Urine WBC Ur Squamous Epith Cells Urine Bacteria Ur Culture Indicated? Vol Urine Centrifuged Ur Random Sodium Urine Creatinine Assessment & Plan Assessment & Plan narrative: I have reviewed the pt's symptomsand labs with the ER provider and agree with the decision for admission here. I have personally reviewed the labs showing a Na-129, Cr- 3.32, CT scan of the abdominalso was reviewed by myself showing nor real acute abnormalities. 1. acute kidney injury on chronic kidney disease- The ER provider attempted to transfer the pt to [facility] due to her acute worsening of her GFR which they did accept her but the pt is refusing any type of transfer. I have explained to the pt that this is not the best option for her and that IF we are going to do everything for her, she should accept the transfer. She states she is going to refuse any dialysis in the future or now. I told her we would attempt some IVF and supportive care but ultimately her renal function may only get worse. She is accepting of this. Will repeat BMP in am, 2. hyponatremia- on IVF, Na is 129, repeat in am. 3. hypomagnesium - mild, in light of poor renal function, will repeat in am before replacement 4. DM- started on insulin SS and accuchecks. Dr. Konstantin Osorio in [place] has seen and evaluated the patient Ginna Rivers in [place] with audio/video of telemedicine with the pt's consent and nursing assistance. Time-Based Coding :: [TOTAL MINUTES] spent with patient and on the chart (including review of chart, obtaining history, exam, reviewing outside data, placing orders, documenting exam and treatment plan, and counseling patient) on [DATE].
[2025-04-18] MEDS: SODIUM CHLORIDE 0.9% 1,000 ML 100 ML IV ×2 (01:54→11:58)
[2025-04-18 05:15] LABS: Magnesium 1.5 mg/dL (1.6-2.3)
[2025-04-18] MEDS: PANTOPRAZOLE DR 20 MG TABLET PO (06:24)
--- NOTE | 2025-04-18 06:37 | PC.ADMIT ---
[email or web address] Admission Note: The patient,Ginna Rivers,74 y/o, was given written information regarding hospital policies, unit procedures and contact persons. Patient's smoking status: Former smoker. Vital Signs - 8 hr 04/17/25 23:02 04/17/25 23:04 04/17/25 23:04 Temperature Pulse Rate 90 Respiratory Rate 18 18 Blood Pressure 147/66 H Pulse Oximetry 96 98 Oxygen Delivery Method Room Air Oxygen Flow Rate 04/17/25 23:30 04/17/25 23:30 04/18/25 00:00 Temperature Pulse Rate 84 Respiratory Rate Blood Pressure 121/63 133/63 Pulse Oximetry 97 Oxygen Delivery Method Oxygen Flow Rate 04/18/25 00:00 04/18/25 01:25 04/18/25 01:25 Temperature Pulse Rate 81 89 Respiratory Rate 17 Blood Pressure 164/90 H Pulse Oximetry 96 98 Oxygen Delivery Method Room Air Oxygen Flow Rate 04/18/25 02:00 04/18/25 02:00 04/18/25 05:00 Temperature 97.7 F Pulse Rate 88 Respiratory Rate 15 Blood Pressure 164/90 H Pulse Oximetry 97 98 Oxygen Delivery Method Room Air Room Air Oxygen Flow Rate 0 Admit/Night Note-Patient brought to ICU room 229 in a WC. A/Ox4. Ambulatory. Voiding clear yellow urine, 1200ml total. NS @ 100m/hr started. SR, BP 164/90, other VSS. Denies pain. Friend stayed overnight.
--- NOTE | 2025-04-18 07:10 | PM.HP.1 ---
History of Present Illness History of Present Illness Date Patient Seen: 04/18/25 Chief complaint: Acute Renal Failure/Hyponutremia Narrative: The pt is a 74 yo with known stage 4-5 CKD who developed a URI with sore throat one week ago but got better after several days and then due to hyperglycemia started to fast intermittantly. She had routine labs drawn this morning that showed a Cr of 4.5, which is new for her, her baseline is around 2.7. The pt states that over the past 4 months her blood sugars have been very poorly controlled. She currently denies any back pain, fevers, chills, hematuria, N/V. 04/18: Creatinine has improved now down to 3.14 with IV fluid. Magnesium is 1.5 and lipase is 355. She tells me that she lives in [place] by herself without any remaining family and with very few friends. Her primary care physician is Dr. Pace. She is very happy that she was not transferred to a tertiary hospital. Meds Home Medications and Allergies Home Medications ?Medication ?Instructions ?Recorded ?Confirmed ?Type aspirin 81 mg tablet,delayed 81 mg PO DAILY 09/10/23 02/12/25 History release (Adult Low Dose Aspirin) [id number]-bvjpnexurcdyv-oaboxirm 250 1 tab PO Q4-6H PRN Pain 09/10/23 02/12/25 History mg-250 mg-65 mg tablet (Excedrin Extra Strength) cholecalciferol (vitamin D3) 1,250 1,250 mcg PO QMONTH 09/10/23 02/12/25 History mcg (50,000 unit) capsule cyanocobalamin (vitamin B-12) 500 250 mcg PO DAILY 09/10/23 02/12/25 History mcg tablet (B-12 DOTS) lutein 20 mg tablet 20 mg PO DAILY 09/10/23 02/12/25 History multivitamin 1 tab PO DAILY 09/10/23 02/12/25 History calcium 315 mg (as 1 tab PO osteopenia 08/07/24 02/12/25 History citrate)-vitamin D3 5 mcg (200 unit) tablet (Calcium Citrate + D) blood sugar diagnostic (True #100 ea 09/14/24 02/12/25 Rx Metrix Glucose Test Strip) lisinopril 2.5 mg tablet 2.5 mg PO DAILY #30 tabs 12/21/24 02/12/25 Rx metformin 1,000 mg tablet 1,000 mg PO BID #120 tabs 02/13/25 Rx diazepam 5 mg tablet 5 mg PO BID PRN anxiety #20 tabs 04/09/25 Rx hydrochlorothiazide 12.5 mg tablet 12.5 mg PO DAILY #30 tabs 04/09/25 Rx Labs: Laboratory Results - last 24 hr 04/17/25 04/17/25 04/17/25 14:50 17:45 19:05 WBC 8.2 RBC 4.54 Hgb 13.3 Hct 38.6 MCV 85.0 MCH 29.3 MCHC 34.5 RDW 12.9 Plt Count 340 Neut % (Auto) 61.5 Lymph % (Auto) 29.9 [place] % (Auto) 6.1 Eos % (Auto) 1.7 L Baso % (Auto) 0.8 Neut # (Auto) 5000 Lymph # (Auto) 2400 [place] # (Auto) 500 Eos # (Auto) 100 Baso # (Auto) 100 VBG pH VBG pCO2 VBG pO2 VBG HCO3 VBG Total CO2 VBG O2 Saturation VBG Base Excess Sodium 126 L 131 L Potassium 4.5 4.5 Chloride 95 L 100 Carbon Dioxide 13 L 14 L BUN 54 H 50 H Creatinine 3.94 H 3.70 H Estimated GFR 11 L 12 L BUN/Creatinine Ratio 13.7 13.5 Glucose 242 H 102 H D Calcium 9.9 9.6 Magnesium 1.5 L Total Bilirubin 0.5 AST 38 H ALT 33 Alkaline Phosphatase 50 Total Protein 8.5 H Albumin 5.0 Globulin 3.5 Albumin/Globulin Ratio 1.4 Lipase 355 H Urine Color Yellow Urine Appearance Clear Urine pH 6.0 Ur Specific [place] <=1.005 Urine Protein Negative Urine Glucose (UA) Trace H Urine Ketones Negative Urine Occult Blood Trace-intact Urine Nitrate Negative Urine Bilirubin Negative Urine Urobilinogen 0.2 Ur Leukocyte Esterase Negative Urine RBC None seen Urine WBC None seen Ur Squamous Epith Cells 0-1 /hpf Urine Bacteria None seen Ur Culture Indicated? Cult not indicated Vol Urine Centrifuged 10ml (spun) Ur Random Sodium 64 Urine Creatinine 21.11 04/17/25 04/17/25 19:17 22:55 WBC RBC Hgb Hct MCV MCH MCHC RDW Plt Count Neut % (Auto) Lymph % (Auto) [place] % (Auto) Eos % (Auto) Baso % (Auto) Neut # (Auto) Lymph # (Auto) [place] # (Auto) Eos # (Auto) Baso # (Auto) VBG pH 7.30 L VBG pCO2 37.3 L VBG pO2 46 H VBG HCO3 18 L VBG Total CO2 18 L VBG O2 Saturation 77 H VBG Base Excess -7.3 L Sodium 129 L Potassium 4.2 Chloride 104 Carbon Dioxide 14 L BUN 47 H Creatinine 3.32 H Estimated GFR 14 L BUN/Creatinine Ratio 14.2 Glucose 231 H D Calcium 8.7 Magnesium Total Bilirubin AST ALT Alkaline Phosphatase Total Protein Albumin Globulin Albumin/Globulin Ratio Lipase Urine Color Urine Appearance Urine pH Ur Specific [place] Urine Protein Urine Glucose (UA) Urine Ketones Urine Occult Blood Urine Nitrate Urine Bilirubin Urine Urobilinogen Ur Leukocyte Esterase Urine RBC Urine WBC Ur Squamous Epith Cells Urine Bacteria Ur Culture Indicated? Vol Urine Centrifuged Ur Random Sodium Urine Creatinine Assessment & Plan 1. Acute kidney injury on chronic kidney disease- The ER provider attempted to transfer the pt to [facility] due to her acute worsening of her GFR which they did accept her but the pt refused any type of transfer. She states she is going to refuse any dialysis in the future or now. With IV fluid her creatinine has improved. Dr. Walker is her director check. 2. hyponatremia- on IVF, Na is 129, repeat in am. 3. hypomagnesium - mild, in light of poor renal function, will replace gently with oral Mg. 4. DM- started on insulin SS and accuchecks. Enoxaparin for DVT prevention. Disposition: Likely to return home on 04/19 [facility] Social History household members: none Smoking Status: Former smoker alcohol intake: former Meds Home Medications and Allergies Home Medications ?Medication ?Instructions ?Recorded ?Confirmed ?Type aspirin 81 mg tablet,delayed 81 mg PO DAILY 09/10/23 04/18/25 History release (Adult Low Dose Aspirin) gchciyx-nmzybxvlpxcaf-vorwlfvx 250 1 tab PO Q4-6H PRN Pain 09/10/23 04/18/25 History mg-250 mg-65 mg tablet (Excedrin Extra Strength) cholecalciferol (vitamin D3) 1,250 1,250 mcg PO QMONTH 09/10/23 04/18/25 History mcg (50,000 unit) capsule cyanocobalamin (vitamin B-12) 500 250 mcg PO DAILY 09/10/23 04/18/25 History mcg tablet (B-12 DOTS) lutein 20 mg tablet 20 mg PO DAILY 09/10/23 04/18/25 History multivitamin 1 tab PO DAILY 09/10/23 04/18/25 History calcium 315 mg (as 1 tab PO osteopenia 08/07/24 02/12/25 History citrate)-vitamin D3 5 mcg (200 unit) tablet (Calcium Citrate + D) blood sugar diagnostic (True #100 ea 09/14/24 04/18/25 Rx Metrix Glucose Test Strip) lisinopril 2.5 mg tablet 2.5 mg PO DAILY #30 tabs 12/21/24 04/18/25 Rx metformin 1,000 mg tablet 1,000 mg PO BID #120 tabs 02/13/25 04/18/25 Rx diazepam 5 mg tablet 5 mg PO BID PRN anxiety #20 tabs 04/09/25 04/18/25 Rx hydrochlorothiazide 12.5 mg tablet 12.5 mg PO DAILY #30 tabs 04/09/25 04/18/25 Rx Allergies Allergy/AdvReac Type Severity Reaction Status Date / Time NSAIDS (Non-Steroidal Allergy Severe Anxiety Verified 04/17/25 14:21 Anti-Inflamma shellfish derived Allergy Severe Abdominal Verified 04/17/25 14:21 Pain Detseiy-FCY-YhF Reductase Allergy Severe Anxiety Verified 04/17/25 14:21 Inhibitor amoxicillin Allergy Intermediate Rash Verified 04/17/25 14:21 progesterone Allergy Intermediate Verified 04/17/25 14:21 albuterol Allergy PVC's Verified 04/17/25 14:21 food Allergy Severe Abdominal Uncoded 04/17/25 14:21 Pain titanium oxide Allergy Severe Rash Uncoded 04/17/25 14:21 Exam Vital Signs (past 8 hours): - 04/17/25 23:30 04/17/25 23:30 04/18/25 00:00 Temperature Pulse Rate 84 Respiratory Rate Blood Pressure 121/63 133/63 Pulse Oximetry 97 Oxygen Delivery Method Oxygen Flow Rate 04/18/25 00:00 04/18/25 01:25 04/18/25 01:25 Temperature Pulse Rate 81 89 Respiratory Rate 17 Blood Pressure 164/90 H Pulse Oximetry 96 98 Oxygen Delivery Method Room Air Oxygen Flow Rate 04/18/25 02:00 04/18/25 02:00 04/18/25 05:00 Temperature 97.7 F Pulse Rate 88 Respiratory Rate 15 Blood Pressure 164/90 H Pulse Oximetry 97 98 Oxygen Delivery Method Room Air Room Air Oxygen Flow Rate 0 04/18/25 06:00 Temperature 97.9 F Pulse Rate 85 Respiratory Rate 17 Blood Pressure 159/70 H Pulse Oximetry 97 Oxygen Delivery Method Oxygen Flow Rate 0 Oxygen Delivery Method Room Air Oxygen Flow Rate 0 Narrative Exam Narrative: Alert and oriented x3. No apparent distress. Bilateral facial melasma. Heart is regular rate and rhythm without murmur. Lungs are clear to auscultation bilaterally. Abdomen is soft, bowel sounds positive, nontender, no organomegaly. There is no ankle edema. Objective Labs 04/17/25 14:50 04/18/25 04:24 Labs: Laboratory Results - last 24 hr 04/17/25 04/17/25 04/17/25 14:50 17:45 19:05 WBC 8.2 RBC 4.54 Hgb 13.3 Hct 38.6 MCV 85.0 MCH 29.3 MCHC 34.5 RDW 12.9 Plt Count 340 Neut % (Auto) 61.5 Lymph % (Auto) 29.9 [place] % (Auto) 6.1 Eos % (Auto) 1.7 L Baso % (Auto) 0.8 Neut # (Auto) 5000 Lymph # (Auto) 2400 [place] # (Auto) 500 Eos # (Auto) 100 Baso # (Auto) 100 VBG pH VBG pCO2 VBG pO2 VBG HCO3 VBG Total CO2 VBG O2 Saturation VBG Base Excess Sodium 126 L 131 L Potassium 4.5 4.5 Chloride 95 L 100 Carbon Dioxide 13 L 14 L BUN 54 H 50 H Creatinine 3.94 H 3.70 H Estimated GFR 11 L 12 L BUN/Creatinine Ratio 13.7 13.5 Glucose 242 H 102 H D Calcium 9.9 9.6 Magnesium 1.5 L Total Bilirubin 0.5 AST 38 H ALT 33 Alkaline Phosphatase 50 Total Protein 8.5 H Albumin 5.0 Globulin 3.5 Albumin/Globulin Ratio 1.4 Lipase 355 H Urine Color Yellow Urine Appearance Clear Urine pH 6.0 Ur Specific [place] <=1.005 Urine Protein Negative Urine Glucose (UA) Trace H Urine Ketones Negative Urine Occult Blood Trace-intact Urine Nitrate Negative Urine Bilirubin Negative Urine Urobilinogen 0.2 Ur Leukocyte Esterase Negative Urine RBC None seen Urine WBC None seen Ur Squamous Epith Cells 0-1 /hpf Urine Bacteria None seen Ur Culture Indicated? Cult not indicated Vol Urine Centrifuged 10ml (spun) Ur Random Sodium 64 Urine Creatinine 21.11 04/17/25 04/17/25 04/18/25 19:17 22:55 04:24 WBC RBC Hgb Hct MCV MCH MCHC RDW Plt Count Neut % (Auto) Lymph % (Auto) [place] % (Auto) Eos % (Auto) Baso % (Auto) Neut # (Auto) Lymph # (Auto) [place] # (Auto) Eos # (Auto) Baso # (Auto) VBG pH 7.30 L VBG pCO2 37.3 L VBG pO2 46 H VBG HCO3 18 L VBG Total CO2 18 L VBG O2 Saturation 77 H VBG Base Excess -7.3 L Sodium 129 L Potassium 4.2 Chloride 104 Carbon Dioxide 14 L BUN 47 H Creatinine 3.32 H Estimated GFR 14 L BUN/Creatinine Ratio 14.2 Glucose 231 H D Calcium 8.7 Magnesium 1.5 L Total Bilirubin AST ALT Alkaline Phosphatase Total Protein Albumin Globulin Albumin/Globulin Ratio Lipase Urine Color Urine Appearance Urine pH Ur Specific [place] Urine Protein Urine Glucose (UA) Urine Ketones Urine Occult Blood Urine Nitrate Urine Bilirubin Urine Urobilinogen Ur Leukocyte Esterase Urine RBC Urine WBC Ur Squamous Epith Cells Urine Bacteria Ur Culture Indicated? Vol Urine Centrifuged Ur Random Sodium Urine Creatinine Assessment & Plan Time-Based Coding :: [TOTAL MINUTES] spent with patient and on the chart (including review of chart, obtaining history, exam, reviewing outside data, placing orders, documenting exam and treatment plan, and counseling patient) on [DATE]. Quality VTE Deep Vein Thrombosis/Pulmonary Embolism Present on Admission: No
[2025-04-18] MEDS: ENOXAPARIN 30 MG/0.3 ML SYRINGE SUBCUT (08:36)
[2025-04-18] MEDS: ASPIRIN EC 81 MG TABLET PO (08:36)
[2025-04-18] MEDS: INSULIN LISPRO 100 UNIT/ML 3ML VIAL SUBCUT ×3 (08:36→17:25)
[2025-04-18 08:52] LABS: MRSA (Nasal) PCR NOT DETECTED (Not Detect)
[2025-04-18 09:47] LABS: Blood Urea Nitrogen 45 mg/dL (7-17); Calcium 8.7 mg/dL (8.4-10.2); Carbon Dioxide 16 mmol/L (22-32); Chloride 100 mmol/L (98-107); Estimated Glomerular Filt Rate 15 mL/min (>60); Glucose 219 mg/dL (70-99); HEMOLYSIS < 15 (0-50); Potassium 3.9 mmol/L (3.4-5.1); Sodium 128 mmol/L (137-145)
--- NOTE | 2025-04-18 15:26 | CM.DANOTE ---
Addendum entered by ANTIONE Shultz 04/18/25 15:32: Home Address for patient is: [id number] [address] Original Note: DCP Assessment Note: Pt is a 74yo female, resident of [place], is admitted for acute kidney failure. Pt lives in a house alone. Pt's Primary Care Provider is Dr. Marti Pace and insurance is Medicare and [employer]. Reviewed chart and discussed with multidisciplinary team pt's medical status and initial discharge needs. Per hosptialist, pt declined transfer to [facility] - will provide IVF and supportive care. DCP met w/patient at bedside; introduced self and role. Patient was found in bed, alert and oriented, cooperative with assessment. Pt confirmed living situation and good support in friend, states she was previously independent with a use of a cane. Pt expressed preference in discharge home with home health if available. Pt has no previous history of home health or SNF Rehab. SUPERVISOR REMELT reviewed Medicare Choice list with pt, states she would request a home health referral for safety assessment; no preference for agency. Plan: Anticipating dc home with friend to transport, following for home health referral when discharge is imminent. CM team will follow closely for coordination of discharge plans. NEEL Bang Discharge Planning/Care Management CM Discharge Assessment Start: 04/18/25 01:41 Freq: Status: Active Protocol: Document 04/18/25 15:24 MW (Rec: 04/18/25 15:25 MW [id number]) Discharge Planning Assessment Assigned Discharge ANTIONE Cruiel Band Sawyer Provider Dr. Marti Pace Insurance Medicare Insurance Comment [employer]/Assigned Nan Reillyclintonmaura Marito Designee Name Contact Information [phone] Advance Directives? Yes: POLST at home Advance Directives No on File History Provided By Patient,Friend Has Patient been No admitted in last 30 days? Prior Living House Arrangements Comment [place] Household Members none Type of Drives own vehicle transporation used prior to admit Independent with ADL Yes 's Is patient alert and Yes oriented? Caregiver for No Another DME Already Rented / FWW / Walker,Cane Owned Discharge Plan Home with Home Health Whiteboard Updated Yes in Patient Room with name and ext. # of Site Project Manager Comment [phone] Review Status In Process Please Provide Date 04/18/25 Initial DC Assessment Was Performed Next Review Type Continued Stay Review
--- NOTE | 2025-04-18 18:13 | PC.NURSE ---
PT A/OX4. ON ROOM AIR. NO COMPLAINTS OF PAIN OR SOB. IVF CONTINUED. NORCO X1 FOR HEADACHE. ABLE TO AMBULATE AND VOID IN BATHROOM TOILET. GOOD URINE OUTPUT, SEE DOCUMENTATION. LABS REDRAWN. DR SORIA ROUNDED ON PT. POSSIBLE D/C TOMORROW. NO CONCERNS FROM PATIENT AT THIS TIME. TOLERATING PO INTAKE. CARE ONGOING.
[2025-04-18] MEDS: INSULIN GLARGINE 100 UNIT/ML 3ML PEN 10 UNIT SUBCUT (20:26)
[2025-04-19] VITALS (10 sets, daily range): BP systolic 119–164; BP diastolic 0–70; PULSE 82–90; RESP 15–18; TEMP 36.3–36.6; O2SAT 77–98
[2025-04-19] MEDS: SODIUM CHLORIDE 0.9% 1,000 ML 100 ML IV ×2 (00:07→06:33)
[2025-04-19 05:58] LABS: Add Manual Diff / Slide Review NO; Hematocrit 33.8 % (36-46); Hemoglobin 11.5 g/dL (12.0-16.0); Lymphocytes Absolute Auto 2500 /uL (1100-4500); Mean Corpuscular HGB Conc 34.0 % (30-36); Mean Corpuscular Hemoglobin 28.9 PG (26-34); Mean Corpuscular Volume 84.9 fL (80-100); Platelet Count 319 X10^3/uL (150-400)
[2025-04-19 06:02] LABS: Blood Urea Nitrogen 36 mg/dL (7-17); Calcium 9.0 mg/dL (8.4-10.2); Carbon Dioxide 17 mmol/L (22-32); Chloride 104 mmol/L (98-107); Estimated Glomerular Filt Rate 19 mL/min (>60); Glucose 173 mg/dL (70-99); HEMOLYSIS < 15 (0-50); Potassium 4.2 mmol/L (3.4-5.1); Sodium 132 mmol/L (137-145)
[2025-04-19 06:09] LABS: NT-proBNP (BNP-Adult 18+) 397 pg/mL (<125)
--- NOTE | 2025-04-19 07:34 | P.DS_ITS ---
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 She had routine labs drawn this morning that showed a Cr of 4.5, which is new for her, her baseline is around 2.7. The pt states that over the past 4 months her blood sugars have been very poorly controlled. She currently denies any back pain, fevers, chills, hematuria, N/V. 04/18: Creatinine has improved now down to 3.14 with IV fluid. Magnesium is 1.5 and lipase is 355. She tells me that she lives in [place] by herself without any remaining family and with very few friends. Her primary care physician is Dr. Serrano. She is very happy that she was not transferred to a tertiary hospital. 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 She had routine labs drawn this morning that showed a Cr of 4.5, which is new for her, her baseline is around 2.7. The pt states that over the past 4 months her blood sugars have been very poorly controlled. She currently denies any back pain, fevers, chills, hematuria, N/V. 04/18: Creatinine has improved now down to 3.14 with IV fluid. Magnesium is 1.5 and lipase is 355. She tells me that she lives in [place] by herself without any remaining family and with very few friends. Her primary care physician is Dr. Serrano. She is very happy that she was not transferred to a tertiary hospital. 04/19: On the day of discharge her creatinine had resolved back down to her baseline at 2.55. The GFR is now 19. The magnesium is 1.3 so she will be started on oral magnesium. We will be stopping the metformin, the HCTZ and lisinopril. She will be changing to Lantus. She also wants to stop the Tradjenta due to cost. She will need to follow up with Nephrology and PCP regarding blood pressure control and final decision on lisinopril/HCTZ use. Status at Discharge Cognitive/behavioral status at discharge: oriented Functional status at discharge: independent ambulation Overall status at discharge: patient is back to baseline Time Spent with Patient Time spent: Less than 30 minutes Exam Vital Signs (past 8 hours): - 04/19/25 00:13 04/19/25 00:14 04/19/25 00:14 Temperature 97.7 F Pulse Rate 82 82 Respiratory Rate 18 Blood Pressure 119/57 L Pulse Oximetry 95 95 Oxygen Flow Rate 04/19/25 04:00 Temperature 97.3 F L Pulse Rate 82 Respiratory Rate 18 Blood Pressure 148/70 H Pulse Oximetry 97 Oxygen Flow Rate 0 Oxygen Delivery Method Room Air Oxygen Flow Rate 0 Narrative Exam Narrative: Alert and oriented x3. No apparent distress. Very appreciative. Heart is regular rate and rhythm without murmur Lungs are clear to auscultation bilaterally Extremities have no ankle edema. Objective Labs 04/19/25 04:18 04/19/25 04:18 Labs: Laboratory Results - last 24 hr 04/18/25 04/18/25 04/18/25 01:30 04:24 08:30 WBC RBC Hgb Hct MCV MCH MCHC RDW Plt Count Neut % (Auto) Lymph % (Auto) [place] % (Auto) Eos % (Auto) Baso % (Auto) Neut # (Auto) Lymph # (Auto) [place] # (Auto) Eos # (Auto) Baso # (Auto) Sodium 128 L Potassium 3.9 Chloride 100 Carbon Dioxide 16 L BUN 45 H Creatinine 3.14 H Estimated GFR 15 L BUN/Creatinine Ratio 14.3 Glucose 219 H POC Whole Bld Glucose 200 H Calcium 8.7 NT-Pro-B Natriuret Pep Nasal Screen MRSA (PCR) Not detected 04/18/25 04/18/25 04/18/25 11:54 17:19 20:07 WBC RBC Hgb Hct MCV MCH MCHC RDW Plt Count Neut % (Auto) Lymph % (Auto) [place] % (Auto) Eos % (Auto) Baso % (Auto) Neut # (Auto) Lymph # (Auto) [place] # (Auto) Eos # (Auto) Baso # (Auto) Sodium Potassium Chloride Carbon Dioxide BUN Creatinine Estimated GFR BUN/Creatinine Ratio Glucose POC Whole Bld Glucose 169 H 143 H 189 H Calcium NT-Pro-B Natriuret Pep Nasal Screen MRSA (PCR) 04/18/25 04/19/25 21:36 04:18 WBC 9.8 RBC 3.98 L Hgb 11.5 L Hct 33.8 L MCV 84.9 MCH 28.9 MCHC 34.0 RDW 13.3 Plt Count 319 Neut % (Auto) 65.9 Lymph % (Auto) 25.5 [place] % (Auto) 5.6 Eos % (Auto) 2.5 Baso % (Auto) 0.5 Neut # (Auto) 6500 Lymph # (Auto) 2500 [place] # (Auto) 600 Eos # (Auto) 200 Baso # (Auto) 0 Sodium 132 L Potassium 4.2 Chloride 104 Carbon Dioxide 17 L BUN 36 H Creatinine 2.55 H Estimated GFR 19 L BUN/Creatinine Ratio 14.1 Glucose 173 H POC Whole Bld Glucose 203 H Calcium 9.0 NT-Pro-B Natriuret Pep 397 H Nasal Screen MRSA (PCR) [facility] Social History household members: none Smoking Status: Former smoker alcohol intake: former Discharge Plan Discharge Plan Patient Disposition: Home Provider Discharge Comment: Follow up with Dr. Serrano in 1-2 weeks. Discharge orders & Medications Prescriptions: New insulin glargine [Lantus Solostar U-100 Insulin] 100 unit/mL (3 mL) Insulin Pen 15 unit SUBCUT BEDTIME Qty: 15 0RF magnesium oxide 400 mg (241.3 mg magnesium) Tablet 400 mg PO DAILY Qty: 30 0RF Continued calcium citrate-vitamin D3 [Calcium Citrate + D] 315 mg-5 mcg (200 unit) tablet 1 tab PO aspirin [Adult Low Dose Aspirin] 81 mg tablet,delayed release (DR/EC) 81 mg PO DAILY lutein 20 mg tablet 20 mg PO DAILY Rx Instructions: give with meal/snack cholecalciferol (vitamin D3) 1,250 mcg (50,000 unit) capsule 1,250 mcg PO QMONTH multivitamin Tablet 1 tab PO DAILY cyanocobalamin (vitamin B-12) [B-12 DOTS] 500 mcg tablet 250 mcg PO DAILY Excedrin Extra Strength 250-250-65 mg tablet 1 tab PO Q4-6H PRN (Reason: Pain) (DME) True Metrix Glucose Test Strip Strip See Rx Instructions .ROUTE .COMPLEX Qty: 100 2RF Dose Instruction: USE TO TEST BLOOD GLUCOSE LEVELS THREE TO FIVE TIMES A DAY Rx Instructions: USE TO TEST BLOOD GLUCOSE LEVELS once a day, NOT insulin dependent diazepam 5 mg tablet 5 mg PO BID PRN (Reason: anxiety) Qty: 20 5RF Discontinued lisinopril 2.5 mg tablet 2.5 mg PO DAILY Qty: 30 3RF metformin 1,000 mg tablet 1,000 mg PO BID Qty: 120 4RF Patient Comments: will only take brands without titanium oxide-severe allergy hydrochlorothiazide 12.5 mg tablet 12.5 mg PO DAILY Qty: 30 0RF Medication counseling provided by Pharmacist: Yes Follow up/Referrals: Marti Serrano MD [Primary Care Provider, Family Practice] Diet/Activity/Treatments Diet: Regular Visit Report/Discharge Packet Stand Alone Forms: Patient Portal/API, Stroke Signs & Symptoms Discharge Data Primary Care Provider: Marti Serrano Quality VTE Deep Vein Thrombosis/Pulmonary Embolism Present on Admission: No
[2025-04-19 08:18] LABS: Magnesium 1.3 mg/dL (1.6-2.3)
[2025-04-19] MEDS: INSULIN LISPRO 100 UNIT/ML 3ML VIAL SUBCUT ×2 (08:38→12:19)
[2025-04-19] MEDS: ENOXAPARIN 30 MG/0.3 ML SYRINGE SUBCUT (08:38)
[2025-04-19] MEDS: ASPIRIN EC 81 MG TABLET PO (08:39)
[2025-04-19] MEDS: MAGNESIUM OXIDE 400 MG TABLET PO (08:39)
--- NOTE | 2025-04-19 12:18 | DIET.CONS ---
Dietary Consultation Note Admission Date: 04/17/2025 23:49 Assessment: Dietitian consulted by RN for pt going on lantus and to provide educ. Pt with hx of CKD and DM since 2007. Starting lantus now. Manages CKD with diet, already aware of nutritional aspects. Has had multiple educations on DM and diet - stays within 1/2 to 1 c carbs at meals, takes FBG. Reports FBG in November around 300s and then down to 250s. Ht: 167.64 cm Wt: 85 kg BMI: 30.2 UBW: intentional weight loss 15 lb in past year per pt Last BM: 04/16/25 (04/18/25 02:10) MNA: 10 Ozzy Score: 20 Diet: 04/18/25 Breakfast Carbohydrate Consistent Diet Diet Modifications: Carbohydrate level: Medium (3 CHO) Reflex DM orders: No Food Texture: Level 7 - Regular Liquid Consistency: Level 0 - Thin Labs: RBC 3.98 X10^6/uL (4.0-5.2) L 04/19/25 04:18 Hgb 11.5 g/dL (12.0-16.0) L 04/19/25 04:18 Hct 33.8 % (36-46) L 04/19/25 04:18 Creatinine 2.55 mg/dL (0.52-1.04) H 04/19/25 04:18 NT-Pro-B Natriuret Pep 397 pg/mL (<125) H 04/19/25 04:18 Nutrition Diagnosis: Altered nutrition related lab values r/t endocrine dysfunction aeb A1c 8.5 on 02/06/25 Interventions: Provided educ on BG numbers, treatment of lows and symptoms, reviewed nutrition for CKD and DM, provided handout on delivering insulin pen with instructions Pt interested in DM educ referral OP, messaged scheduling team to request referral from PCP Monitoring/Evaluations: to d/c today Electronically Signed by: Adeline Pool 04/19/25 12:18 Clinical Dietitian [address] [address]
--- NOTE | 2025-04-19 13:40 | CM.DPNOTE ---
DC Note Patient discharging home today, transport via friend. Met w/patient to review her discharge plan, discussed HH. Patient politely declines HH at this time, knows she can reach out to her PCP if she changes her mind once home. Provided patient with the senior resources book and encouraged her to contact [facility] to discuss help with light chore work. Patient appreciative for the visit. VIVEK
--- NOTE | 2025-04-19 16:14 | PC.NURSE ---
DISCUSSED DISCHARGE WITH PATIENT. SIG PAGE SIGNED AND PLACED IN CHART. PATIENT WHEELED OUT AT 1621. ALL BELONGINGS WITH PATIENT.
== END 2025-04-19 16:21 | disposition home or self-care (01) | DRG 683 ==
LOC: ED 18:09 → AC 23:55 → ICU 04-18 01:09
PROVIDERS: Family Medicine; Student in an Organized Health Care Education/Training Program; Admitting Provider Internal Medicine; Emergency Provider Emergency Medicine; PCP Student in an Organized Health Care Education/Training Program; Referring Provider Emergency Medicine; Visit Provider Internal Medicine
DX: N17.9 Acute kidney failure, unspecified (principal); E87.1 Hypo-osmolality and hyponatremia; I12.0 Hypertensive chronic kidney disease with stage 5 chronic kidney disease or end stage renal disease; N18.5 Chronic kidney disease, stage 5; E83.42 Hypomagnesemia; E11.22 Type 2 diabetes mellitus with diabetic chronic kidney disease; Z53.29 Procedure and treatment not carried out because of patient's decision for other reasons; Z87.891 Personal history of nicotine dependence; Z79.84 Long term (current) use of oral hypoglycemic drugs; F41.9 Anxiety disorder, unspecified
CPT/HCPCS: 36415; 74176; 80048; 80053; 81001; 81003; 82570; 82805; 82962; 83690; 83735; 83880; 84300; 85025; 87797; 96360; 96361; 99284; J1650; J1815

== ENCOUNTER → 2025-05-04 08:37 | Outpatient (CLI) | payer MEDICARE, OTHER, SELFPAY ==
[2025-04-18 02:10] VITALS: BMI 30.2
[2025-05-04 10:22] LABS: Hematocrit 37.7 % (36-46); Hemoglobin 12.9 g/dL (12.0-16.0)
[2025-05-04 10:45] LABS: Blood Urea Nitrogen 20 mg/dL (7-17); Calcium 10.4 mg/dL (8.4-10.2); Carbon Dioxide 26 mmol/L (22-32); Chloride 96 mmol/L (98-107); Estimated Glomerular Filt Rate 42 mL/min (>60); Glucose 200 mg/dL (70-99); HEMOLYSIS < 15 (0-50); Potassium 4.8 mmol/L (3.4-5.1); Sodium 131 mmol/L (137-145)
[2025-05-04 11:32] LABS: Protein (Total) Urine Random 14 mg/dL (0-12); Protein Creatinine Ratio Urine 0.24 GRAM/24H
[2025-05-04 11:40] LABS: Microalbumi Creatinin Ratio Ur 36.0 ug/mg CR (<30)
== END ==
PROVIDERS: PCP Student in an Organized Health Care Education/Training Program; Referring Provider Student in an Organized Health Care Education/Training Program; Visit Provider Student in an Organized Health Care Education/Training Program
DX: N17.9 Acute kidney failure, unspecified (principal); N18.31 Chronic kidney disease, stage 3a; D64.9 Anemia, unspecified; R74.8 Abnormal levels of other serum enzymes; I10 Essential (primary) hypertension
CPT/HCPCS: 36415; 80048; 82043; 82570; 84156; 85014; 85018

== ENCOUNTER → 2025-05-22 15:45 | Outpatient (CLI) | payer MEDICARE, OTHER, SELFPAY ==
[2025-04-18 02:10] VITALS: BMI 30.2
--- NOTE | 2025-06-20 10:39 | DIAB.MNT ---
Addendum entered by Shilpi French 07/03/25 11:23: 07/03/25 phone call: Missed our last visit. Called about titration of Lantus. Rx is for up to 40u based on wt. Currently taking 32u. FBG recently consistently above 200mg/dl, up to 290mg/dl. Encouraged her to titrate up to 40u. States she sees PCP in July. Seems likely to need prandial insulin. RD to message PCP. Original Note: Initial Diabetes Medical Nutrition Therapy Assessment Name: Ginna Rivers Date: 05/22/25 Time: 410-5p Dx: Type II Diabetes Provider: Sanjeev Preferred Learning Style: Listening, watching, doing, reading Ginna presents for initial Dm visit. Dx per report, with unknown FH hx. 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 Was trying to walk more and eat less in Apr and FBG was 130-150s at that time. Since has increased to 170-200s per FBG log with reduced activity. May need increase in Lantus rx, RD messaged PCP and plan implemented with room for titration in rx. weight based recs up to 42u per day basal insulin. Diet Recall: -: cheerios with berries and milk sn: nothing or apple slices x 2 with almond butter 2p: salad with chx and 2 crackers sn: nothing or celery or apple or cheese or 2 crackers 6p: protein and veggies +/- 1/2c pasta sn: tsp almond butter tea coffee water 80-90oz stress with BG lately per report. Not open to CGM at this time. Anthropometrics: Ht: 65 Wt: 186# 04/2025 Weight history: Physical Activity: Walking 3x per week 15-20 mins, yogur and dance sometimes Self-Monitoring Blood Glucose: Excessive elevations with all recent reading above goal. Date Pre Post Pre Post Pre Post HS 05/16 175 178 258 300 05/17 192 348 05/18 185 490 244 05/19 190 191 282 05/20 188 341 246 241 05/21 207 196 294 288 05/22 215 Diabetes Medications: 20u Lantus Pertinent Labs: hg1c; 9.9% 04/2025 Past Medical History: (Last Updated 05/04/25 @ 13:33 by Venkat Walker MD) Essential hypertension Nutrition Rx: Carbohydrates: Meal:30-45g Snack:15-30g Nutrition Diagnosis: - Inconsistent physical activity r/t stage of change aeb pt report - Inconsistent protein intake r/t nutrition knowledge deficit aeb diet recall and pt report Intervention: This participant was very receptive. Provided appropriate educational handouts. Discussed the following topics: Completed intake assessment. Discussed barriers to care. Self monitoring BG vs CGM Pairing macronutrients and spreading out carbohydrates for better blood glucose management Recommended servings for carbohydrates at meals and snacks Heart health nutrition Physical activity strategies and goals Medication management Created SMART goals for patient self-care and success. Goals: Titrate insulin to 25u over the next week 30 min activity per day Protein with meals/snacks Follow-up: JILLIAN TRISTAN follow-up in 2-3 weeks Shilpi French RDN, [facility] Certified Diabetes Care and [facility]totyper P: [phone] Thank you for this referral
== END ==
LOC: DIET 15:46
PROVIDERS: PCP Student in an Organized Health Care Education/Training Program; Referring Provider Student in an Organized Health Care Education/Training Program
DX: E11.9 Type 2 diabetes mellitus without complications (principal); Z71.3 Dietary counseling and surveillance; Z79.4 Long term (current) use of insulin
CPT/HCPCS: 97802